=== PATIENT | female | born 1945 | race Caucasian/White ===

== ENCOUNTER 2018-03-16 15:34 | Inpatient (IN) | payer MEDICARE ==
[2018-03-16 16:51] LABS: ABS Basophils 0.1 10^3/ul (0-0.2); ABS Eosinophils 0.1 10^3/ul (0-0.6); ABS Lymphocytes 1.4 10^3/ul (1.0-4.8); ABS Monocytes 0.7 10^3/ul (0-0.8); ABS Neutrophils 5.3 10^3/ul (1.5-7.7); ABS Nucleated RBC 0 10^3/ul; Eosinophil % 1.2 % (0-6); Hematocrit 39 % (35-47); Mean Corpuscular HGB Conc 33 g/dl (31-36); Mean Corpuscular Hemoglobin 30 pg (27-31); Mean Corpuscular Volume 91 fL (80-97); Mean Platelet Volume 8.1 um3 (7.4-10.4); Nucleated Red Blood Cells % 0.2; Platelet Count 251 10^3/ul (150-450); Red Blood Count 4.29 10^6/ul (4.00-5.40); Red Cell Distribution Width 14 % (10.5-15); White Blood Count 7.6 10^3/ul (3.5-10.8)
[2018-03-16 16:54] LABS: INR 1.02 (0.77-1.02)
[2018-03-16] MEDS ORDERED: Ondansetron INJ* 2 MG/ML VIAL IV ONE (17:00)
[2018-03-16 17:02] LABS: EGFR Non-African American 78.4 (>60)
--- NOTE | 2018-03-16 17:07 | RAD ---
INDICATION: Chest pain. COMPARISON: There are no relevant prior studies available for comparison. TECHNIQUE: A portable view of the chest was obtained. FINDINGS: The heart is mildly enlarged. There is diffuse prominence of the interstitial markings with more focal infiltrates at both lung bases. There are also small bilateral pleural effusions left slightly greater than right. IMPRESSION: FINDINGS MOST CONSISTENT WITH CONGESTIVE HEART FAILURE LESS LIKELY PNEUMONIA.
[2018-03-16] MEDS ORDERED: Furosemide IV* 10 MG/ML VIAL (40 MG) IV ONE (17:19)
--- NOTE | 2018-03-16 17:36 | ED ---
Shortness of Breath - HPI Summary HPI Summary: 72 y/o female presents to the ED c/o SOB since 3 weeks ago. She also c/o CP, lightheadedness, dizziness and TAYLOR. Lying down worsens her pain. She does not take O2 at home but in the ED it is helping. She states that She denies Hx of [place] , COPD, CHF, blood clots or DM. Her left ankle is also swollen. She denies abd pain or urinary symptoms. - History of Current Complaint Chief Complaint: EDShortnessOfBreath Time Seen by Provider: 03/16/18 16:24 Hx Obtained From: Patient Onset/Duration: Gradual Onset, Lasting Weeks, Still Present Timing: Constant Aggrevating Factors: Other - lying down Associated Signs & Symptoms: Chest Pain Unrelated to Cough, Dizzy - Allergy/Home Medications Allergies/Adverse Reactions: Allergies Allergy/AdvReac Type Severity Reaction Status Date / Time No Known Allergies Allergy Verified 03/16/18 15:43 Home Medications: Home Medications Thyroid,Pork [[place] Thyroid] 120 mg PO DAILY 03/16/18 [History Confirmed ] PMH/Surg Hx/FS Hx/Imm Hx Endocrine/Hematology History: Denies: Hx Diabetes Cardiovascular History: Denies: Hx Congestive Heart Failure Respiratory History: Denies: Hx Chronic Obstructive Pulmonary Disease (COPD) - Immunization History Immunizations Up to Date: No Infectious Disease History: No Infectious Disease History: Denies: Traveled Outside the [place] in Last 30 Days - Family History Known Family History: Negative: Cardiac Disease, Diabetes - Social History Alcohol Use: Rare Substance Use Type: Reports: None Smoking Status (MU): Former Smoker Review of Systems Negative: Fever Positive: Chest Pain Positive: Shortness Of Breath Positive: Edema Neurological: Other - Positive: lightheaded, dizziness Positive: Headache All Other Systems Reviewed And Are Negative: Yes Physical Exam - Summary Physical Exam Summary: GENERAL: Patient is a well-developed and nourished female who is lying comfortable in the stretcher. Patient is not in any acute respiratory distress. HEAD AND FACE: Normocephalic EYES: PERRLA, EOMI x 2. EARS: Hearing grossly intact. MOUTH: Oropharynx within normal limits. NECK: Supple, trachea is midline, no adenopathy, no JVD, no carotid bruit. CHEST: Symmetric, no tenderness at palpation LUNGS: Clear to auscultation bilaterally. No wheezing or crackles. CVS: Regular rate and rhythm, S1 and S2 present, no murmurs or gallops appreciated. ABDOMEN: Soft, non-tender. Bowel sounds are normal. No abdominal abnormal pulsations. EXTREMITIES: Full ROM in all major joints, left lower extremity mild edema +1 not pitting, no cyanosis or clubbing. NEURO: Alert and oriented x 3. No acute neurological deficits. Speech is normal and follows commands. SKIN: Dry and warm Triage Information Reviewed: Yes Vital Signs On Initial Exam: Initial Vitals Temp Pulse Resp BP Pulse Ox 97.5 F 105 24 171/94 90 03/16/18 15:39 03/16/18 15:39 03/16/18 15:39 03/16/18 15:39 03/16/18 15:39 Vital Signs Reviewed: Yes Diagnostics - Vital Signs Vital Signs Temp Pulse Resp BP Pulse Ox 03/16/18 17:00 93 26 97 03/16/18 16:49 94 29 168/95 97 03/16/18 16:19 93 26 187/107 97 03/16/18 16:18 96 27 98 03/16/18 15:39 97.5 F 105 24 171/94 90 - Laboratory Lab Results: Lab Results 03/16/18 03/16/18 03/16/18 Range/Units 16:38 16:38 16:38 WBC 7.6 (3.5-10.8) 10^3/ul RBC 4.29 (4.00-5.40) 10^6/ul Hgb 13.0 (12.0-16.0) g/dl Hct 39 (35-47) % MCV 91 (80-97) fL MCH 30 (27-31) pg MCHC 33 (31-36) g/dl RDW 14 (10.5-15) % Plt Count 251 (150-450) 10^3/ul MPV 8.1 (7.4-10.4) um3 Neut % (Auto) 69.4 (38-83) % Lymph % (Auto) 19.0 L (25-47) % Sully % (Auto) 9.7 H (0-7) % Eos % (Auto) 1.2 (0-6) % Baso % (Auto) 0.7 (0-2) % Absolute Neuts (auto) 5.3 (1.5-7.7) 10^3/ul Absolute Lymphs (auto) 1.4 (1.0-4.8) 10^3/ul Absolute Monos (auto) 0.7 (0-0.8) 10^3/ul Absolute Eos (auto) 0.1 (0-0.6) 10^3/ul Absolute Basos (auto) 0.1 (0-0.2) 10^3/ul Absolute Nucleated RBC 0 10^3/ul Nucleated RBC % 0.2 INR (Anticoag Therapy) 1.02 (0.77-1.02) APTT 32.6 (26.0-36.3) seconds Sodium 136 (135-145) mmol/L Potassium 3.6 (3.5-5.0) mmol/L Chloride 103 (101-111) mmol/L Carbon Dioxide 25 (22-32) mmol/L Anion Gap 8 (2-11) mmol/L BUN 16 (6-24) mg/dL Creatinine 0.73 (0.51-0.95) mg/dL Est GFR ( Amer) 94.8 (>60) Est GFR (Non-Af Amer) 78.4 (>60) BUN/Creatinine Ratio 21.9 H (8-20) Glucose 93 (70-100) mg/dL Lactic Acid (0.5-2.0) mmol/L Calcium 8.9 (8.6-10.3) mg/dL Magnesium 2.0 (1.9-2.7) mg/dL Total Bilirubin 0.60 (0.2-1.0) mg/dL AST 18 (13-39) U/L ALT 21 (7-52) U/L Alkaline Phosphatase 59 (34-104) U/L Troponin I 0.13 H* (<0.04) ng/mL B-Natriuretic Peptide ( - 100) pg/mL Total Protein 6.9 (6.4-8.9) g/dL Albumin 3.9 (3.2-5.2) g/dL Globulin 3.0 (2-4) g/dL Albumin/Globulin Ratio 1.3 (1-3) 03/16/18 03/16/18 Range/Units 16:38 16:38 WBC (3.5-10.8) 10^3/ul RBC (4.00-5.40) 10^6/ul Hgb (12.0-16.0) g/dl Hct (35-47) % MCV (80-97) fL MCH (27-31) pg MCHC (31-36) g/dl RDW (10.5-15) % Plt Count (150-450) 10^3/ul MPV (7.4-10.4) um3 Neut % (Auto) (38-83) % Lymph % (Auto) (25-47) % Sully % (Auto) (0-7) % Eos % (Auto) (0-6) % Baso % (Auto) (0-2) % Absolute Neuts (auto) (1.5-7.7) 10^3/ul Absolute Lymphs (auto) (1.0-4.8) 10^3/ul Absolute Monos (auto) (0-0.8) 10^3/ul Absolute Eos (auto) (0-0.6) 10^3/ul Absolute Basos (auto) (0-0.2) 10^3/ul Absolute Nucleated RBC 10^3/ul Nucleated RBC % INR (Anticoag Therapy) (0.77-1.02) APTT (26.0-36.3) seconds Sodium (135-145) mmol/L Potassium (3.5-5.0) mmol/L Chloride (101-111) mmol/L Carbon Dioxide (22-32) mmol/L Anion Gap (2-11) mmol/L BUN (6-24) mg/dL Creatinine (0.51-0.95) mg/dL Est GFR ( Amer) (>60) Est GFR (Non-Af Amer) (>60) BUN/Creatinine Ratio (8-20) Glucose (70-100) mg/dL Lactic Acid 0.7 (0.5-2.0) mmol/L Calcium (8.6-10.3) mg/dL Magnesium (1.9-2.7) mg/dL Total Bilirubin (0.2-1.0) mg/dL AST (13-39) U/L ALT (7-52) U/L Alkaline Phosphatase (34-104) U/L Troponin I (<0.04) ng/mL B-Natriuretic Peptide 664 H ( - 100) pg/mL Total Protein (6.4-8.9) g/dL Albumin (3.2-5.2) g/dL Globulin (2-4) g/dL Albumin/Globulin Ratio (1-3) Result Diagrams: 03/17/18 15:36 03/17/18 15:36 Lab Statement: Any lab studies that have been ordered have been reviewed, and results considered in the medical decision making process. - Radiology CXR Radiology Interpretation Completed By: Radiologist Summary of Radiographic Findings: FINDINGS MOST CONSISTENT WITH CONGESTIVE HEART FAILURE LESS LIKELY PNEUMONIA. The ED physician has reviewed this report. - EKG 1626 Cardiac Rate: NL - 94 EKG Rhythm: Sinus Rhythm Summary of EKG Findings: LVH with associated ST depression in lateral leads. Course/Dx - Course Course Of Treatment: 72 y/o female presents to the ED c/o SOB since 3 weeks ago.Workup is remarkable with a CXR showing findings most consistent with CHF and PNA. The patient will be admitted to Dr. Choi. - Diagnoses Provider Diagnoses: New onset of congestive heart failure - Physician Notifications Discussed Care of Patient With: Bernadine Choi Time Discussed With Above Provider: 17:25 Instructed by Provider To: Admit As Inpatient Discharge - Sign-Out/Discharge Documenting (check all that apply): Patient Departure - Admit - Discharge Plan Condition: Stable Disposition: ADMITTED TO [facility] - Billing Disposition and Condition Condition: STABLE Disposition: Admitted to [facility] - Attestation Statements Document Initiated by Scribe: Yes Documenting Scribe: Moses Briceno Provider For Whom Scribe is Documenting (Include Credential): Berna Lam MD Scribe Attestation: Moses Tavarez scribed for Berna Lam MD on 03/17/18 at 2006. Scribe Documentation Reviewed: Yes Provider Attestation: The documentation as recorded by the krystianibMoses nicole accurately reflects the service I personally performed and the decisions made by me, Joel Lam MD
[2018-03-16] MEDS ORDERED: Morphine INJ* 4 MG/ML 1 ML SYRINGE (NEW SYRINGE VERSION) IV PRN (18:16)
[2018-03-16] MEDS ORDERED: Acetaminophen TAB* 325 MG PO PRN (18:23)
[2018-03-16] MEDS ORDERED: Aspirin TAB* 325 MG PO ONE (18:26)
--- NOTE | 2018-03-16 22:03 | HP ---
AMENDED REPORT NOW INCLUDES DESIGNATED COSIGNER CC: Dr. Monalisa Sandhu * HOSPITAL MEDICINE HISTORY AND PHYSICAL: DATE OF ADMISSION: 03/16/18 PRIMARY CARE PHYSICIAN: Dr. Monalisa Sandhu. ATTENDING PHYSICIAN: Dr. Bryon Moody * (dictation provided by Kathy Swain NP). CHIEF COMPLAINT: Shortness of breath with chest pain x3 weeks. HISTORY OF PRESENT ILLNESS: Ms. Perera is a 72-year-old female with a past medical history of hypothyroidism only, who presents to the hospital today with concern for 3 weeks of band-like chest pain with worsening shortness of breath, dyspnea on exertion, and orthopnea. Ms. Perera states that she was feeling well until 3 weeks ago when she developed some band-like chest pain. She describes it as a burning sensation across the front of her chest. This is worsened with activity and is associated with shortness of breath. She states that she at this point becomes winded even when trying to wash the dishes. She is not able to lay flat to go to bed anymore as of 3 weeks ago and states that she sleeps in a chair. She has had a couple of coughing spells, but no persistent cough and the cough that she had was nonproductive. She denies any nausea, vomiting, diarrhea, abdominal pain. She has been eating normally. In the emergency room, Ms. Perera had labs, which showed a troponin of 0.13. She had a BNP of 664. She has no leukocytosis. Her vital signs show that she is afebrile. She has a heart rate running right around 95 and a blood pressure running 160s to 180s systolically. Her chest x-ray shows concern for pulmonary edema and her EKG shows some suggestion of LVH with some downsloping ST segments in V5 and V6. PAST MEDICAL HISTORY: Hypothyroidism. MEDICATIONS: [place] Thyroid 120 mg daily in 3 divided doses. ALLERGIES: No known drug allergies. FAMILY HISTORY: The patient reports that her mother at age 88 related to blood clots and dad from an accident, but did have history of COPD related to smoking and asbestos and he at age 72. SOCIAL HISTORY: The patient quit smoking in 1999 and has not smoked since. She denies any alcohol or drug use. She lives with her , Jason, who is the healthcare proxy. REVIEW OF SYSTEMS: A 14-point review of systems was completed with Ms. Perera and all those not mentioned above were negative. PHYSICAL EXAMINATION GENERAL: Ms. Perera is sitting up in the bed. She is just returning from a walk to the bathroom and appears a bit winded, but she recovers well. She is in no acute distress. VITAL SIGNS: Temperature 97.5, pulse rate 97, respiratory rate 26, O2 saturation 97% on 2 L nasal cannula, blood pressure 168/95. LUNGS: Have crackles bilaterally in the bases, but good aeration and no accessory muscle use. HEART: S1, S2. Systolic murmur 5th intercostal space, mid clavicular line. ABDOMEN: Soft, nontender with bowel sounds positive x4. EXTREMITIES: No cyanosis. No edema. NEURO: She is alert. She is oriented x3. She moves all extremities equally. There is no facial asymmetry or focal weakness. Extraocular movements are intact. SKIN: Intact. DIAGNOSTIC STUDIES/LAB DATA: WBC 7.6, hemoglobin 13.0, hematocrit 39, platelet count 251. INR 1.02. Sodium 136, potassium 3.6, chloride 103, serum bicarbonate 25, BUN 16, creatinine 0.73, glucose 93, lactic acid 0.7. Troponin 0.13, BNP 664. Chest x-ray is as follows: "Findings most consistent with congestive heart failure, less likely pneumonia." EKG shows sinus rhythm with LVH pattern including deep S waves in V1-V3 and tall R waves in the precordial leads ASSESSMENT AND PLAN: Ms. Perera is a 72-year-old female with past medical history of hypothyroidism only, who presented to the hospital today with concern for chest pain and worsening dyspnea on exertion with orthopnea x3 weeks. In the emergency room, she has been found to have elevated troponin at 0.13 with concern for a non- ST elevation myocardial infarction as well as an elevated BNP and pulmonary edema on chest x-ray with concern for congestive heart failure. Our plans are for observation in the hospital for the followin. Non-ST elevation myocardial infarction. The patient states that she has had burning across the center of her chest but she is chest pain free now. Certainly, her symptoms could all be related to myocardial infarction, although at this time, I would not suspect that she is having acute coronary syndrome given the 3-week long period of associated symptoms. I suspect that her elevated troponin could be due to demand ischemia with CHF. Regardless, our plans will be for telemetry monitoring, repeat troponins, repeat EKGs with her troponins, and transthoracic echocardiogram. She would benefit from stress testing, but at this point based on her orthopnea, I do not think she would be a good candidate. I am hopeful that with the administration of Lasix for her concomitant congestive heart failure that we will be able perform that testing for her possibly even as early as tomorrow, but I am not ordering it now. In terms of medication, the patient will have 325 mg of aspirin in the emergency room and then continue with aspirin daily. I have ordered a lipid profile. Plan for atorvastatin and metoprolol as well, given her relatively elevated BP. 2. Concern for congestive heart failure. The patient has no history of congestive heart failure, but does have pulmonary edema and symptoms consistent with such. Plan for transthoracic echocardiogram and evaluation for coronary artery disease as per above. 3. Hypothyroidism. Plan to hold her Key[place] Thyroid and she can resume that at the time of discharge. 4. Code status is full code. TIME SPENT: Approximately 60 minutes were spent on the admission of this patient, more than half the time spent with her at the bedside reviewing the events leading up to this hospitalization, performing the physical examination, and reviewing my plan of care. KATHY SWAIN NP [id number]/[facility] #: [id number] LIZETTE
[2018-03-16] MEDS: Atorvastatin* 40 MG TAB PO SCH (22:46)
[2018-03-16] MEDS: Metoprolol Tartrate TAB* 25 MG PO SCH (22:46)
[2018-03-16] MEDS: Heparin VIAL(*) 5000 UNITS/ML VIAL (FIVE THOUSAND) SUBCUT SCH (22:47)
[2018-03-17] MEDS: Heparin VIAL(*) 5000 UNITS/ML VIAL (FIVE THOUSAND) SUBCUT SCH (06:02)
[2018-03-17] MEDS: Aspirin 81 mg CHEW TAB* 81 MG TAB.CHEW PO SCH (09:50)
[2018-03-17] MEDS: Metoprolol Tartrate TAB* 25 MG PO SCH ×2 (09:50→21:12)
--- NOTE | 2018-03-17 10:57 | ECHO ---
Patient: JOANN RAO [facility] Rec#: [id number] : 1945 Date: 03/17/2018 Age: 72y Height: 168 cm / 66.1 in Weight: 74.84 kg / 164.9 lbs Sex: F BSA: 1.85 Room#: [facility] Admit Date#: 03/16/2018 Type: Inpatient Referring: Kathy Swain NP Reading: Isai Guerra MD [employer]: Louisa Chamberlain RDCS CC: Monalisa Sandhu MD Transthoracic Echocardiogram Indication: Congestive heart failure BP: 137/72 HR: 87 Rhythm: NSR with PVCs Findings History: Hypothyroidism, former smoker. Technical Comments: The study quality is fair. Completed at 0850. Left Ventricle: The left ventricular chamber size is mildly dilated. Mild concentric left ventricular hypertrophy is observed. There is global hypokinesis of the left ventricle with minor regional variation. There is moderately decreased left ventricular systolic function. The estimated ejection fraction is 35-40%. There is no consistent Doppler evidence of clinically significant diastolic dysfunction. Left Atrium: The left atrium is severely dilated. Right Ventricle: Moderator Band present. The right ventricular cavity size is normal. The right ventricular global systolic function is low normal. Right Atrium: The right atrium is slightly dilated. Aortic Valve: The aortic valve is trileaflet. The aortic valve leaflets are mildly thickened. There is no evidence of aortic regurgitation. There is no evidence of aortic stenosis. Mitral Valve: There is mitral annular calcification. The mitral valve leaflets are mildly thickened. There is moderate mitral regurgitation. There is no evidence of mitral stenosis. Tricuspid Valve: The tricuspid valve leaflets are normal. There is trace tricuspid regurgitation. The right ventricular systolic pressure is estimated at 27 mmHg. No pulmonary hypertension is noted. There is no tricuspid stenosis. Pulmonic Valve: The pulmonic valve appears normal. There is a trace pulmonic regurgitation. There is no pulmonic stenosis. Pericardium: There is no significant pericardial effusion. A pericardial fat pad is visualized. A left pleural effusion is present. Aorta: There is borderline dilatation of the ascending aorta. The aortic arch is not well visualized. The aortic root is normal in size. Pulmonary Artery: The main pulmonary artery appears normal. Venous: The inferior vena cava is dilated. There is a greater than 50% respiratory change in the inferior vena cava dimension. Summary: There was not any prior study for comparison. Conclusions The left ventricular chamber size is mildly dilated. Mild concentric left ventricular hypertrophy is observed. There is global hypokinesis of the left ventricle with minor regional variation. There is moderately decreased left ventricular systolic function. The estimated ejection fraction is 35-40%. Hypo/akinesis of basal-mid inferoseptum, basal-mid inferior wall, basal-mid inferolateral wall There is no consistent Doppler evidence of clinically significant diastolic dysfunction. The left atrium is severely dilated. The right atrium is slightly dilated. There is moderate mitral regurgitation. There is trace tricuspid regurgitation. The right ventricular systolic pressure is estimated at 27 mmHg. No pulmonary hypertension is noted. There is a trace pulmonic regurgitation. There is borderline dilatation of the ascending aorta. There was not any prior study for comparison. Measurements Name Value Normal Range RVIDd (AP) 2D 2.1 cm (0.9 - 2.6) RVDdMajor (2D) 4.3 cm (2.2 - 4.4) RAd ISD 4CH 4.7 cm (3.4 - 4.9) RA (A4C)W 4.8 cm (2.9 - 4.6) IVSd (2D) 1.2 cm (0.6 - 1) LVPWd (2D) 1.1 cm (0.6 - 1) LVIDd (2D) 5.8 cm (3.6 - 5.4) LVIDs (2D) 5 cm - LV FS (2D) 14 % (25 - 45) Aortic Annulus 2.1 cm (1.4 - 2.6) Ao root diameter (2D) 3.1 cm (2.1 - 3.5) Ascending Ao 3.4 cm (2.1 - 3.4) LA dimension (AP) 2D 4.1 cm (2.3 - 3.8) LAd ISD 4CH 6.1 cm (2.9 - 5.3) LA ISD 4CH W 5.4 cm (2.5 - 4.5) Name Value Normal Range LA ESV BP (A/L) index 63 ml/m2 - Name Value Normal Range MV E-wave Vmax 1.4 m/sec - MV deceleration time 77 msec - MV A-wave Vmax 0.9 m/sec - MV E:A ratio 1.7 ratio - LV septal e' Vmax 0.04 m/sec - LV lateral e' Vmax 0.05 m/sec - LV E:e' septal ratio 35 ratio - LV E:e' lateral ratio 28 ratio - Name Value Normal Range AV Vmax 1.3 m/sec - AV VTI 26.1 cm - AV peak gradient 7 mmHg - AV mean gradient 4 mmHg - LVOT Vmax 0.8 m/sec - LVOT VTI 15.5 cm - LVOT peak gradient 2 mmHg - LVOT mean gradient 1 mmHg - Name Value Normal Range MR Vmax 5 m/sec - MR VTI 165 cm - MR flow (PISA) 86.8 ml/sec - MR ERO 0.17 cm2 - MR PISA radius 0.5 cm - MR alias Vmax 55.3 cm/sec - Name Value Normal Range TR Vmax 2.2 m/sec - TR peak gradient 19 mmHg - RAP 8 mmHg - RVSP 27 mmHg - IVC diameter 2.3 cm - Name Value Normal Range PV Vmax 0.8 m/sec - PV peak gradient 3 mmHg -
[2018-03-17] MEDS ORDERED: Heparin DRIP 25,000 UNITS(*) 25,000 UNITS/500 ML BAG ONE (11:59)
[2018-03-17] MEDS ORDERED: Heparin DRIP 25,000 UNITS(*) 25,000 UNITS/500 ML BAG IV SCH (12:00)
[2018-03-17] MEDS ORDERED: Lisinopril TAB* 5 MG ONE (12:02)
[2018-03-17] MEDS ORDERED: Heparin VIAL(*) 5000 UNITS/ML VIAL (FIVE THOUSAND) SUBCUT PRN ×2 (12:12→12:14)
[2018-03-17] MEDS: Lisinopril TAB* 5 MG PO SCH (12:17)
[2018-03-17] MEDS ORDERED: Furosemide IV* 10 MG/ML 2 ML VIAL (20 MG) IV ONE (13:46)
[2018-03-17 15:50] LABS: ABS Basophils 0 10^3/ul (0-0.2); ABS Eosinophils 0.1 10^3/ul (0-0.6); ABS Lymphocytes 1.7 10^3/ul (1.0-4.8); ABS Monocytes 0.6 10^3/ul (0-0.8); ABS Neutrophils 3.2 10^3/ul (1.5-7.7); ABS Nucleated RBC 0 10^3/ul; Eosinophil % 2.2 % (0-6); Hematocrit 40 % (35-47); Hemoglobin 13.3 g/dl (12.0-16.0); Lymphocyte % 30.1 % (25-47); Mean Corpuscular HGB Conc 33 g/dl (31-36); Mean Corpuscular Hemoglobin 31 pg (27-31); Mean Corpuscular Volume 92 fL (80-97); Mean Platelet Volume 8.1 um3 (7.4-10.4); Nucleated Red Blood Cells % 0.1; Platelet Count 251 10^3/ul (150-450); Red Blood Count 4.35 10^6/ul (4.00-5.40); Red Cell Distribution Width 14 % (10.5-15); White Blood Count 5.6 10^3/ul (3.5-10.8)
[2018-03-17 16:17] LABS: EGFR Non-African American 79.6 (>60)
[2018-03-17] MEDS ORDERED: Potassium Chlor TAB* 20 MEQ TAB.ER PO ONE (16:31)
--- NOTE | 2018-03-17 19:58 | PN ---
Subjective Date of Service: 03/17/18 Interval History: Patient reports that she is feeling better today. States that shortness of breath has improved. states that she is able to lay flat in the bed. Denies chest pain or shortness of breath at this time. Denies abd pain n.v.d. ECHO today showed reduced EF of 35% - cardiology consulted Family History: Unchanged from Admission Social History: Unchanged from Admission Past Medical History: Unchanged from Admission Objective Active Medications: Acetaminophen (Tylenol Tab*) 650 mg PO Q6H PRN PRN Reason: PAIN Aspirin (Aspirin 81 Mg Chew Tab*) 81 mg PO DAILY [facility] Last Admin: 03/17/18 09:50 Dose: 81 mg Atorvastatin Calcium (Lipitor*) 40 mg PO 2100 [facility] Last Admin: 03/16/18 22:46 Dose: 40 mg Heparin Sodium (Porcine) (Heparin Vial(*)) 0 units SUBCUT .PER PROTOCOL PRN PRN Reason: SEE HEPARIN DRIP Heparin Sodium/Dextrose (Heparin Drip 25,000 Units(*)) 25,000 units in 500 mls @ 0 mls/hr IV PER RATE [facility]; Protocol Last Admin: 03/17/18 12:15 Dose: 18 mls/hr Lisinopril (Prinivil Tab*) 2.5 mg PO DAILY [facility] Last Admin: 03/17/18 12:17 Dose: 2.5 mg Metoprolol Tartrate (Lopressor Tab*) 25 mg PO BID [facility] Last Admin: 03/17/18 09:50 Dose: 25 mg Morphine Sulfate (Morphine Inj (Syringe)*) 4 mg IV Q4H PRN PRN Reason: PAIN Vital Signs - 8 hr 03/17/18 15:15 Temperature 97.7 F Pulse Rate 76 Respiratory 16 Rate Blood Pressure 143/73 (mmHg) O2 Sat by Pulse 96 Oximetry Oxygen Devices in Use Now: None Appearance: appears comfortable no acute distress Eyes: No Scleral Icterus Ears/Nose/Mouth/Throat: Clear Oropharnyx, Mucous Membranes Moist Neck: NL Appearance and Movements; NL JVP, Trachea Midline Respiratory: Symmetrical Chest Expansion and Respiratory Effort, Clear to Auscultation Cardiovascular: No Edema, - - Mild JVD, Murmur , s1s2 regular Abdominal: NL Sounds; No Tenderness; No Distention Extremities: No Edema, No Clubbing, Cyanosis Skin: No Rash or Ulcers Neurological: Alert and Oriented x 3 Nutrition: Taking PO's Result Diagrams: 03/18/18 05:37 03/18/18 05:37 Additional Lab and Data: Lab Results 03/16/18 03/16/18 03/16/18 Range/Units 16:38 16:38 16:38 WBC 7.6 (3.5-10.8) 10^3/ul RBC 4.29 (4.00-5.40) 10^6/ul Hgb 13.0 (12.0-16.0) g/dl Hct 39 (35-47) % MCV 91 (80-97) fL MCH 30 (27-31) pg MCHC 33 (31-36) g/dl RDW 14 (10.5-15) % Plt Count 251 (150-450) 10^3/ul MPV 8.1 (7.4-10.4) um3 Neut % (Auto) 69.4 (38-83) % Lymph % (Auto) 19.0 L (25-47) % [place] % (Auto) 9.7 H (0-7) % Eos % (Auto) 1.2 (0-6) % Baso % (Auto) 0.7 (0-2) % Absolute Neuts (auto) 5.3 (1.5-7.7) 10^3/ul Absolute Lymphs (auto) 1.4 (1.0-4.8) 10^3/ul Absolute Monos (auto) 0.7 (0-0.8) 10^3/ul Absolute Eos (auto) 0.1 (0-0.6) 10^3/ul Absolute Basos (auto) 0.1 (0-0.2) 10^3/ul Absolute Nucleated RBC 0 10^3/ul Nucleated RBC % 0.2 INR (Anticoag Therapy) 1.02 (0.77-1.02) APTT 32.6 (26.0-36.3) seconds Sodium 136 (135-145) mmol/L Potassium 3.6 (3.5-5.0) mmol/L Chloride 103 (101-111) mmol/L Carbon Dioxide 25 (22-32) mmol/L Anion Gap 8 (2-11) mmol/L BUN 16 (6-24) mg/dL Creatinine 0.73 (0.51-0.95) mg/dL Est GFR ( Amer) 94.8 (>60) Est GFR (Non-Af Amer) 78.4 (>60) BUN/Creatinine Ratio 21.9 H (8-20) Glucose 93 (70-100) mg/dL Lactic Acid (0.5-2.0) mmol/L Calcium 8.9 (8.6-10.3) mg/dL Magnesium 2.0 (1.9-2.7) mg/dL Total Bilirubin 0.60 (0.2-1.0) mg/dL AST 18 (13-39) U/L ALT 21 (7-52) U/L Alkaline Phosphatase 59 (34-104) U/L Troponin I 0.13 H* (<0.04) ng/mL B-Natriuretic Peptide ( - 100) pg/mL Total Protein 6.9 (6.4-8.9) g/dL Albumin 3.9 (3.2-5.2) g/dL Globulin 3.0 (2-4) g/dL Albumin/Globulin Ratio 1.3 (1-3) 03/16/18 03/16/18 Range/Units 16:38 16:38 WBC (3.5-10.8) 10^3/ul RBC (4.00-5.40) 10^6/ul Hgb (12.0-16.0) g/dl Hct (35-47) % MCV (80-97) fL MCH (27-31) pg MCHC (31-36) g/dl RDW (10.5-15) % Plt Count (150-450) 10^3/ul MPV (7.4-10.4) um3 Neut % (Auto) (38-83) % Lymph % (Auto) (25-47) % [place] % (Auto) (0-7) % Eos % (Auto) (0-6) % Baso % (Auto) (0-2) % Absolute Neuts (auto) (1.5-7.7) 10^3/ul Absolute Lymphs (auto) (1.0-4.8) 10^3/ul Absolute Monos (auto) (0-0.8) 10^3/ul Absolute Eos (auto) (0-0.6) 10^3/ul Absolute Basos (auto) (0-0.2) 10^3/ul Absolute Nucleated RBC 10^3/ul Nucleated RBC % INR (Anticoag Therapy) (0.77-1.02) APTT (26.0-36.3) seconds Sodium (135-145) mmol/L Potassium (3.5-5.0) mmol/L Chloride (101-111) mmol/L Carbon Dioxide (22-32) mmol/L Anion Gap (2-11) mmol/L BUN (6-24) mg/dL Creatinine (0.51-0.95) mg/dL Est GFR ( Amer) (>60) Est GFR (Non-Af Amer) (>60) BUN/Creatinine Ratio (8-20) Glucose (70-100) mg/dL Lactic Acid 0.7 (0.5-2.0) mmol/L Calcium (8.6-10.3) mg/dL Magnesium (1.9-2.7) mg/dL Total Bilirubin (0.2-1.0) mg/dL AST (13-39) U/L ALT (7-52) U/L Alkaline Phosphatase (34-104) U/L Troponin I (<0.04) ng/mL B-Natriuretic Peptide 664 H ( - 100) pg/mL Total Protein (6.4-8.9) g/dL Albumin (3.2-5.2) g/dL Globulin (2-4) g/dL Albumin/Globulin Ratio (1-3) Assess/Plan/Problems-Billing Assessment: Ms. Perera is a 72 y.o female with a PMHx significant for Hypothyroid who presented to the Emergency room with progressively worsening shortness of breath over the past 3 weeks. found to have CHF - Patient Problems (1) Acute systolic CHF (congestive heart failure) Current Visit: Yes Status: Acute Code(s): I50.21 - ACUTE SYSTOLIC ( CONGESTIVE) HEART FAILURE SNOMED Code(s): 877357923 Comment: - shortness of breath improved with Lasix- given 20mg of lasix today - ECHO showed EF of 35-40% with systolic dysfuction The left ventricular chamber size is mildly dilated. Mild concentric left ventricular hypertrophy is observed. There is global hypokinesis of the left ventricle with minor regional variation. There is moderately decreased left ventricular systolic function. The estimated ejection fraction is 35-40%. Hypo/akinesis of basal-mid There is no consistent Doppler evidence of clinically significant diastolic dysfunction. The left atrium is severely dilated. The right atrium is slightly dilated. There is moderate mitral regurgitation. There is trace tricuspid regurgitation. The right ventricular systolic pressure is estimated at 27 mmHg. No pulmonary hypertension is noted. There is a trace pulmonic regurgitation. There is borderline dilatation of the ascending aorta. - will add Lisinopril 2.5 mg - Consulted cardiology - seen by interventional cardiology today- continue BB, lisinopril, asa and heparin drip. plan to continue lasix, heparin drip, will have cath after CHF is improved - repeat cxr in the AM (2) Hypothyroid Current Visit: Yes Status: Acute Code(s): E03.9 - HYPOTHYROIDISM, UNSPECIFIED SNOMED Code(s): 67922162 Comment: holding - armour thyroid (3) DVT prophylaxis Current Visit: Yes Status: Acute Code(s): HXW9105 - SNOMED Code(s): 900821769 Comment: heparin drip (4) Full code status Current Visit: Yes Status: Acute Code(s): Z78.9 - OTHER SPECIFIED HEALTH STATUS SNOMED Code(s): 923433397 Status and Disposition: inpatient discharge when medically stable
[2018-03-17] MEDS: Atorvastatin* 40 MG TAB PO SCH (21:12)
--- NOTE | 2018-03-17 22:29 | CONS ---
CC: Dr. Guerra; Hospital Service; Dr. Monalisa Sandhu CARDIOLOGY CONSULT: DATE OF CONSULT: 03/17/18 PRIMARY CARE PHYSICIAN: Dr. Monalisa Sandhu. HISTORY OF PRESENT ILLNESS: I was asked by hospital service to see this pleasant 72-year-old female patient with her only known past medical history of hypothyroidism and she is on thyroid medications for that. She said for about 3 weeks' duration, she had new onset of chest pain mainly exertional wi th her usual daily activity and also shortness of breath. She also had episode of chest pressure whi le she was eating her meals. She indicated that when she started activities, her symptoms improved s ignificantly. She had no jaw pain, no arm pain, no nausea, no vomiting, no fever, no chills, no acut e viral illness recently. She gives no history of congestive heart failure, no history of coronary a rtery disease, no history of myocardial infarction in the past. She had history of smoking on and of f for about 20 years and she quit in the year 1999. She has no family history of coronary artery dis ease. She is usually an active person taking care of her daily activity without any limiting symptom s other than the 3 weeks ago. She had no syncope, no palpitations, no tachycardia, no swelling of th e lower extremities. Upon presentation to the emergency room, she was found to be in mild congestive heart failure with a BNP of 664 and also her chest x-ray was reported to have some congestive heart failure. She responded very well to diuresis with Lasix. Her last episode of chest pain and symptom was yesterday actually before coming to the hospital. Since being in the hospital resting, she had no symptoms of chest pain. She had troponins that have been since yesterday at 0.12, 0.15, 0.15, and today this morning at 4:16, 0.16. She is chest pain-free at the present time. She had an echocardi ogram that showed her EF to be globally 35% to 40%, but she does have also segmental wall motion abno rmalities including her mid to basal inferior wall and also she had hypokinesis and akinesis of the i nferoseptal and basal to mid inferolateral wall. She does have moderate mitral insufficiency, trace tricuspid insufficiency, trace pulmonic insufficiency, borderline dilatation of the ascending aorta. Her EKGs showed her to have from yesterday, 03/16/18, sinus rhythm with possible Qs in V1, V2, borde rline ST elevation, peak T-wave and also possible LVH. There is T-wave inversion and ST depressions in V5, V6, and borderline ST elevation in lead III with some Q-wave in lead III. Her EKG from today done at 10:39 this morning showed her to have borderline Q in lead III. She does have borderline ST elevation in V1 and also T flattening and borderline ST depression in lead I, aVL, V4, V5 and V6. PAST MEDICAL HISTORY: Includes history of hypothyroidism. MEDICATIONS: Her medication as an outpatient include [place] Thyroid 120 mg daily in 3 divided doses. Her medications as an inpatient include: 1. Tylenol 650 mg p.o. q.6 hours p.r.n. 2. Aspirin 81 mg daily. 3. Lipitor 40 mg daily. 4. Heparin IV as per protocol. 5. Lisinopril 2.5 mg daily. 6. Metoprolol 25 mg twice a day. 7. Morphine 4 mg IV q.4 hours. ALLERGIES: No known drug allergies. FAMILY HISTORY: No family history of premature coronary artery disease. SOCIAL HISTORY: She quit smoking in the year 1999. She did smoke for about 20 years. No significan t alcohol drinking or illicit drug use. REVIEW OF SYSTEMS: Her review of all other systems essentially is negative. PHYSICAL EXAM: She is awake, alert, and oriented. She is not in acute distress. She had no symptoms of chest pain. Her vitals: Blood pressure is 146/81; her pulse 82, she is in sinus rhythm; tempera ture 98; respiratory rate 16. Head and Neck Exam: Normocephalic, atraumatic head. Ears, nose, and throat essentially benign. Neck: Supple. JVP is not elevated. No carotid bruits. No masses in th e neck are appreciated. Chest: Clear to auscultation. No rales, no wheeze. No added sounds apprec iated. Heart: Normal, S1, S2. No added sounds. No gallops, no rubs. There is a grade 2/6 systoli c murmur in the apex. Abdomen: Benign, soft. Positive bowel sounds. Extremities: No edema, no cy anosis, and no clubbing. Skin exam is normal. Psych: Normal affect and mood. SALESPERSON FURNITURE: No focal defic it is appreciated. DIAGNOSTIC STUDIES/LAB DATA: Sodium 136, potassium 3.6, chloride 103, total CO2 of 25, BUN 16, creat inine 0.73. LFTs normal. Triglycerides 100, cholesterol 191, LDL 116, HDL 55. White blood cells 7. 6, hemoglobin 13, hematocrit 39, platelets 215. Her echo, EKG, chest x-ray as described initially. IMPRESSION: The patient is a 72-year-old female with: 1. Acute coronary syndrome. Has been going on for about 3 weeks with typical exertional chest pain for angina and abnormal troponin. 2. Mild congestive heart failure, improved. 3. Cardiomyopathy with EF 35% to 40% with wall motion abnormality, concerns for ischemic cardiomyopa thy. 4. Abnormal EKG as described. 5. Borderline hypokalemia. 6. Hypothyroidism, on medical treatment. 7. Remote history of tobacco consumption. 8. Moderate mitral insufficiency. PLAN: This patient is currently monitored on the telemetry floor. I discussed this patient with the hospitalist service. I agree with aspirin, low dose beta- pema, low dose THEA inhibitor, statin, IV heparin as you are already doing. I discussed the plan with the patient as well. Based on all of the above, I strongly recommend cardiac catheterization to evaluate her coronary anatomy. Benefits and risks discussed with the patient and she is willing to proceed. Subsequently, I have discussed t his patient today with Dr. Alvares. He is interviewing the patient as right now actually to further d kelleyuss about the cardiac catheterization and future intervention if needed. I answered all her sharlene rns and questions up to her satisfaction. Thank you very much for asking us to participate in the care of this patient. Any further recommenda tions will be pending her cardiac catheterization results. TIME SPENT: More than half of at least 60 to 65 plus minutes was in the education, counseling mode, [id number] explaining all of the above and making further recommendations. [id number]/[facility] #: [id number]
--- NOTE | 2018-03-18 00:10 | CONS ---
CC: Dr. Monalisa Sandhu; Dr. Isai Guerra. INTERVENTIONAL CARDIOLOGY CONSULTATION NOTE: DATE OF CONSULT: INDICATION FOR CONSULT: Asked by Dr. Guerra to assess patient for cardiac catheterization in [facility] t of presentation with congestive heart failure, abnormal troponins and chest discomfort, and abnorma l EKG. HISTORY OF PRESENT ILLNESS: The patient is a pleasant 72-year-old female with no prior known coronar y artery disease history. Specifically, she denies prior myocardial infarction, congestive heart noah lure, or significant heart rhythm disturbance. She does however state that all of her life, she has been told she has some type of a squeak sound in her heart. I described to her the word murmur and s he said may be that is it. No one has ever really addressed what exactly it was. Patient was in her usual state of health until early February during the first week of February when she started going to bed at night and when she would lie down, she noticed a pressure sensation sitting on her chest. It was better if she sat up. She was short of breath when she was lying down and it was better if she sat up. The first week, she did not have specifically any type of exertionally related chest discomf ort when she would walk around the house. By the second week, she started to get quite winded walkin g some 10 steps with shortness of breath. Interestingly, at that point, she did not have chest discom fort, but if she ate something, she would feel a pressure sensation and shortness of breath. Clearly , whenever she was lying down, she would get the same symptoms. This progressed to the of point of where it was getting so bad that she could not get any deep breath, she could not lie down. So, she presented to the hospital emergency room. In the emergency room, her blood results came sunny k showing an initial troponin of 0.13, SGOT was 18, SGPT was 21, lactic acid was 0.7. Her B-natriure tic peptide was 664. Her BUN and creatinine were 16 and 0.7. Her hemoglobin and hematocrit was 13 a nd 39 with a platelet count of 251,000. Her INR was 1.0 and a PTT was 32. Chest x-ray showed signs of congestive heart failure, interestingly with bilateral effusions left greater than right suggestin g that this was not a sudden onset symptomatology. There was diffuse prominence of the interstitial markings with more focal infiltrates at both lung bases according to the report. The heart was quoted as being mildly enlarged. Over the course of the hospitalization thus far, her troponin really did not vary significant with va lues of 0.13, 0.12, 0.15, 0.15. There were no MB or troponins that were drawn from these samples. Initial EKG in the emergency room dated 03/16/18, timed 1626 hours, showed sinus rhythm, heart rate 9 4, DC interval 0.17, QRS interval was 0.10, QT was 0.38. There was mild down-sloping ST segment in 1 aVL. There was suggestive findings of left ventricular hypertrophy with strained pattern noted. Re peat EKG timed 2238 hours showed similar findings and the final EKG from this morning on 03/17/18 raymond ed 1039 hours showed a mildly slower heart rate with still the presence of probable left ventricular hypertrophy with repolarization abnormalities. En echocardiogram was performed this morning and revealed the left ventricle to be mildly dilated wit h mild concentric left ventricular hypertrophy with global hypokinesis with minor regional variations , the EF estimated at 35% to 40%. The left atrium was reportedly severely dilated according to the r eport by Dr. Guerra. There was moderate mitral regurgitation and trace tricuspid regurgitation. Right ventricular systolic pressure was estimated at 27 mmHg. There was borderline dilatation of the ascending aorta. An interesting fact with the patient's past medical history is that she has hypothyroidism and in the late January, she was noted to have a TSH of 25. At that time, her family doctor increased her th yroid medication from 75 mg slowly over the course of the next couple of weeks to 120 mg a day. The patient's other past medical histories include hypertension for about 4 or 5 years that was noted . She has no history of diabetes. She has a history of a mildly increased cholesterol but has never been on therapy for it. CURRENT MEDICATION: [place] thyroid 120 mg that she takes in 3 divided dosages. ALLERGIES: No known drug allergies. FAMILY HISTORY: As mentioned, there is no history of early coronary artery disease throughout the im [facility] family. SOCIAL HISTORY: She did smoke, but quit in 1999 and has not smoked since. [facility] and does not abuse alcohol or drugs. REVIEW OF SYSTEMS: As per the H and P without significant change. PHYSICAL EXAMINATION: When I see, reveals a pleasant female currently resting, in no acute distress, not on oxygen. Neck is supple. There is mild increased JVP noted. Carotids have good upstroke and volume; I do not appreciate bruits. Conjunctivae pink. Sclerae clear. Lungs reveal no accessory mus chiquis usage. There are crackles present in the left base up perhaps from the base to almost slightly [address] up on the left. The right has minimal crackles at the base. There is a question of mi nimal dullness noted at the right base. Heart reveals no visible heaves. There is definitely a palp able heave noted. Normal S1, S2. There is a very harsh, squeaky sounding systolic murmur out in the epical region. There was no significant diastolic murmur that I can appreciate. Abdomen is obese, soft, nontender. Extremities are heavy in nature, but no christain pitting edema. Femoral pulses presen t bilaterally without bruits. Right radial artery pulse is present. Neuro: Patient is alert and rigo ented with normal mentation. Musculoskeletal: The patient moves all extremities appropriate. Psych ological: Patient with normal affect. OVERALL ASSESSMENT: Zakia Perera presents now with congestive heart failure that clearly has been pre sent over the past 3 to 4 weeks by history and looking at the chest x-ray. At this point in time wit h her LV dysfunction and mitral regurgitation, I agree that a cardiac catheterization would be helpfu l to rule out the presence of coronary artery disease. At this point, being that she has not been tr eated with any therapy at all until being admitted to the hospital, I would favor that we increase he r medications and get her on good dosage of medications for LV dysfunction, continue the heparin for now since she is stable, and optimize her lung status before proceeding with the diagnostic and possi ble therapeutic cardiac catheterization. I am on all weekend long and clearly if she was to deterior ate, we would consider performing it sooner. In the meantime, I will order a full BMP on her to make sure what her potassium is doing with the diuresis. I will give her another dose of IV Lasix, but o nly 20 mg and then we will also check a TSH to make sure that it is not still significantly elevated as it was in late January. Further management will be made pending improving her current underlyin g lung status. Thank you very much for asking us to see her and we will follow her closely with you. [id number]/[facility] #: [id number]
[2018-03-18 05:55] LABS: ABS Basophils 0.1 10^3/ul (0-0.2); ABS Eosinophils 0.2 10^3/ul (0-0.6); ABS Lymphocytes 2.2 10^3/ul (1.0-4.8); ABS Monocytes 0.8 10^3/ul (0-0.8); ABS Neutrophils 2.8 10^3/ul (1.5-7.7); ABS Nucleated RBC 0 10^3/ul; Eosinophil % 2.9 % (0-6); Hematocrit 40 % (35-47); Lymphocyte % 35.8 % (25-47); Mean Corpuscular HGB Conc 33 g/dl (31-36); Mean Corpuscular Hemoglobin 30 pg (27-31); Mean Corpuscular Volume 92 fL (80-97); Mean Platelet Volume 7.9 um3 (7.4-10.4); Nucleated Red Blood Cells % 0.1; Platelet Count 250 10^3/ul (150-450); Red Blood Count 4.32 10^6/ul (4.00-5.40); Red Cell Distribution Width 14 % (10.5-15); White Blood Count 6.1 10^3/ul (3.5-10.8)
[2018-03-18 06:12] LABS: EGFR Non-African American 70.5 (>60)
[2018-03-18] MEDS: Lisinopril TAB* 5 MG PO SCH (08:31)
[2018-03-18] MEDS: Metoprolol Tartrate TAB* 25 MG PO SCH ×2 (08:31→21:15)
[2018-03-18] MEDS: Aspirin 81 mg CHEW TAB* 81 MG TAB.CHEW PO SCH (08:32)
--- NOTE | 2018-03-18 08:53 | PN ---
Subjective Date of Service: 03/18/18 Interval History: Patient reports that her shortness of breath is improving, continues to c/o mild shortness of breath. Denies chest pain. Denies headache or dizziness. Denies abd pain n/v/d. Family History: Unchanged from Admission Social History: Unchanged from Admission Past Medical History: Unchanged from Admission Objective Active Medications: Acetaminophen (Tylenol Tab*) 650 mg PO Q6H PRN PRN Reason: PAIN Aspirin (Aspirin 81 Mg Chew Tab*) 81 mg PO DAILY [facility] Last Admin: 03/18/18 08:32 Dose: 81 mg Atorvastatin Calcium (Lipitor*) 40 mg PO 2100 [facility] Last Admin: 03/17/18 21:12 Dose: 40 mg Heparin Sodium (Porcine) (Heparin Vial(*)) 0 units SUBCUT .PER PROTOCOL PRN PRN Reason: SEE HEPARIN DRIP Heparin Sodium/Dextrose (Heparin Drip 25,000 Units(*)) 25,000 units in 500 mls @ 0 mls/hr IV PER RATE [facility]; Protocol Last Admin: 03/17/18 12:15 Dose: 18 mls/hr Lisinopril (Prinivil Tab*) 2.5 mg PO DAILY [facility] Last Admin: 03/18/18 08:31 Dose: 2.5 mg Metoprolol Tartrate (Lopressor Tab*) 25 mg PO BID [facility] Last Admin: 03/18/18 08:31 Dose: 25 mg Morphine Sulfate (Morphine Inj (Syringe)*) 4 mg IV Q4H PRN PRN Reason: PAIN Vital Signs - 8 hr 03/18/18 04:19 Temperature 97.7 F Pulse Rate 77 Respiratory 18 Rate Blood Pressure 144/78 (mmHg) O2 Sat by Pulse 92 Oximetry Oxygen Devices in Use Now: None Appearance: appears comfortable lying in bed, no acute distress Eyes: No Scleral Icterus Ears/Nose/Mouth/Throat: Clear Oropharnyx, Mucous Membranes Moist Neck: NL Appearance and Movements; NL JVP, Trachea Midline Respiratory: Symmetrical Chest Expansion and Respiratory Effort, Clear to Auscultation Cardiovascular: No Edema, - - S1S2 regular, murmur , no jvd Abdominal: NL Sounds; No Tenderness; No Distention Extremities: No Edema, No Clubbing, Cyanosis Skin: No Rash or Ulcers, No Nodules or Sclerosis Neurological: Alert and Oriented x 3 Nutrition: Taking PO's Result Diagrams: 03/18/18 05:37 03/19/18 05:26 Additional Lab and Data: Lab Results 03/16/18 03/16/18 03/16/18 Range/Units 16:38 16:38 16:38 WBC 7.6 (3.5-10.8) 10^3/ul RBC 4.29 (4.00-5.40) 10^6/ul Hgb 13.0 (12.0-16.0) g/dl Hct 39 (35-47) % MCV 91 (80-97) fL MCH 30 (27-31) pg MCHC 33 (31-36) g/dl RDW 14 (10.5-15) % Plt Count 251 (150-450) 10^3/ul MPV 8.1 (7.4-10.4) um3 Neut % (Auto) 69.4 (38-83) % Lymph % (Auto) 19.0 L (25-47) % Moca % (Auto) 9.7 H (0-7) % Eos % (Auto) 1.2 (0-6) % Baso % (Auto) 0.7 (0-2) % Absolute Neuts (auto) 5.3 (1.5-7.7) 10^3/ul Absolute Lymphs (auto) 1.4 (1.0-4.8) 10^3/ul Absolute Monos (auto) 0.7 (0-0.8) 10^3/ul Absolute Eos (auto) 0.1 (0-0.6) 10^3/ul Absolute Basos (auto) 0.1 (0-0.2) 10^3/ul Absolute Nucleated RBC 0 10^3/ul Nucleated RBC % 0.2 INR (Anticoag Therapy) 1.02 (0.77-1.02) APTT 32.6 (26.0-36.3) seconds Sodium 136 (135-145) mmol/L Potassium 3.6 (3.5-5.0) mmol/L Chloride 103 (101-111) mmol/L Carbon Dioxide 25 (22-32) mmol/L Anion Gap 8 (2-11) mmol/L BUN 16 (6-24) mg/dL Creatinine 0.73 (0.51-0.95) mg/dL Est GFR ( Amer) 94.8 (>60) Est GFR (Non-Af Amer) 78.4 (>60) BUN/Creatinine Ratio 21.9 H (8-20) Glucose 93 (70-100) mg/dL Lactic Acid (0.5-2.0) mmol/L Calcium 8.9 (8.6-10.3) mg/dL Magnesium 2.0 (1.9-2.7) mg/dL Total Bilirubin 0.60 (0.2-1.0) mg/dL AST 18 (13-39) U/L ALT 21 (7-52) U/L Alkaline Phosphatase 59 (34-104) U/L Troponin I 0.13 H* (<0.04) ng/mL B-Natriuretic Peptide ( - 100) pg/mL Total Protein 6.9 (6.4-8.9) g/dL Albumin 3.9 (3.2-5.2) g/dL Globulin 3.0 (2-4) g/dL Albumin/Globulin Ratio 1.3 (1-3) 03/16/18 03/16/18 Range/Units 16:38 16:38 WBC (3.5-10.8) 10^3/ul RBC (4.00-5.40) 10^6/ul Hgb (12.0-16.0) g/dl Hct (35-47) % MCV (80-97) fL MCH (27-31) pg MCHC (31-36) g/dl RDW (10.5-15) % Plt Count (150-450) 10^3/ul MPV (7.4-10.4) um3 Neut % (Auto) (38-83) % Lymph % (Auto) (25-47) % Moca % (Auto) (0-7) % Eos % (Auto) (0-6) % Baso % (Auto) (0-2) % Absolute Neuts (auto) (1.5-7.7) 10^3/ul Absolute Lymphs (auto) (1.0-4.8) 10^3/ul Absolute Monos (auto) (0-0.8) 10^3/ul Absolute Eos (auto) (0-0.6) 10^3/ul Absolute Basos (auto) (0-0.2) 10^3/ul Absolute Nucleated RBC 10^3/ul Nucleated RBC % INR (Anticoag Therapy) (0.77-1.02) APTT (26.0-36.3) seconds Sodium (135-145) mmol/L Potassium (3.5-5.0) mmol/L Chloride (101-111) mmol/L Carbon Dioxide (22-32) mmol/L Anion Gap (2-11) mmol/L BUN (6-24) mg/dL Creatinine (0.51-0.95) mg/dL Est GFR ( Amer) (>60) Est GFR (Non-Af Amer) (>60) BUN/Creatinine Ratio (8-20) Glucose (70-100) mg/dL Lactic Acid 0.7 (0.5-2.0) mmol/L Calcium (8.6-10.3) mg/dL Magnesium (1.9-2.7) mg/dL Total Bilirubin (0.2-1.0) mg/dL AST (13-39) U/L ALT (7-52) U/L Alkaline Phosphatase (34-104) U/L Troponin I (<0.04) ng/mL B-Natriuretic Peptide 664 H ( - 100) pg/mL Total Protein (6.4-8.9) g/dL Albumin (3.2-5.2) g/dL Globulin (2-4) g/dL Albumin/Globulin Ratio (1-3) Assess/Plan/Problems-Billing Assessment: Ms. Perera is a 72 y.o female with a PMHx significant for Hypothyroid who presented to the Emergency room with progressively worsening shortness of breath over the past 3 weeks. found to have CHF - Patient Problems (1) Acute systolic CHF (congestive heart failure) Current Visit: Yes Status: Acute Code(s): I50.21 - ACUTE SYSTOLIC ( CONGESTIVE) HEART FAILURE SNOMED Code(s): 414651829 Comment: - shortness of breath improved with Lasix - ECHO showed EF of 35-40% with systolic dysfuction The left ventricular chamber size is mildly dilated. Mild concentric left ventricular hypertrophy is observed. There is global hypokinesis of the left ventricle with minor regional variation. There is moderately decreased left ventricular systolic function. The estimated ejection fraction is 35-40%. Hypo/akinesis of basal-mid There is no consistent Doppler evidence of clinically significant diastolic dysfunction. The left atrium is severely dilated. The right atrium is slightly dilated. Mod MR. Trace TR. No pulmonary hypertension is noted. There is a trace pulmonic regurgitation. - will add Lisinopril 2.5 mg - Consulted cardiology - seen by interventional cardiology - continue BB, lisinopril, asa and heparin drip. plan to continue lasix, heparin drip, will have cath after CHF is improved- most likely tuesday - repeat cxr in the AM- (2) Hypertension Current Visit: Yes Status: Acute Code(s): I10 - ESSENTIAL (PRIMARY) HYPERTENSION SNOMED Code(s): 68340398 Comment: SBP 117-152 Started on lisinopril will increase to 5 mg and re-evaluate BP (3) Hypothyroid Current Visit: Yes Status: Acute Code(s): E03.9 - HYPOTHYROIDISM, UNSPECIFIED SNOMED Code(s): 35210333 Comment: TSH 1.81 continue armour thyroid (4) DVT prophylaxis Current Visit: Yes Status: Acute Code(s): WGR9923 - SNOMED Code(s): 252771504 Comment: heparin drip - stopped will convert to lovenox 1mg/kg (75mg) BID (5) Full code status Current Visit: Yes Status: Acute Code(s): Z78.9 - OTHER SPECIFIED HEALTH STATUS SNOMED Code(s): 501758496 Status and Disposition: inpatient discharge when medically stable
--- NOTE | 2018-03-18 09:15 | RAD ---
INDICATION: Chest pain. COMPARISON: Comparison is made with a prior study from March 16, 2018. TECHNIQUE: Dual-energy PA and lateral views of the chest were obtained. FINDINGS: The heart is upper limits of normal in size. Mediastinal contours appear normal. There are small bibasilar infiltrates and small bilateral pleural effusions which appear improved from the prior study. No pneumothorax is seen. IMPRESSION: SMALL BIBASILAR INFILTRATES AND SMALL PLEURAL EFFUSIONS IMPROVED FROM THE PRIOR STUDY.
[2018-03-18] MEDS ORDERED: Lisinopril TAB* 5 MG PO ONE ×2 (09:52→15:00)
[2018-03-18] MEDS: Furosemide TAB* 20 MG PO SCH (10:19)
[2018-03-18] MEDS: Enoxaparin(*) 80 MG/0.8 ML SYR SUBCUT SCH ×2 (11:23→23:18)
[2018-03-18] MEDS: Thyroid TAB* 15 MG PO SCH (16:30)
[2018-03-18] MEDS: Atorvastatin* 40 MG TAB PO SCH (21:15)
[2018-03-18] MEDS: Thyroid TAB* 30 MG PO SCH (21:41)
[2018-03-19 05:54] LABS: EGFR Non-African American 78.4 (>60)
[2018-03-19] MEDS ORDERED: Lisinopril TAB* 5 MG PO SCH (09:00)
[2018-03-19] MEDS: Aspirin 81 mg CHEW TAB* 81 MG TAB.CHEW PO SCH (09:14)
[2018-03-19] MEDS: Thyroid TAB* 15 MG PO SCH ×2 (09:14→16:59)
[2018-03-19] MEDS: Metoprolol Tartrate TAB* 25 MG PO SCH ×2 (09:14→21:30)
[2018-03-19] MEDS: Furosemide TAB* 20 MG PO SCH (09:14)
[2018-03-19] MEDS: Lisinopril TAB* 10 MG PO SCH (09:39)
--- NOTE | 2018-03-19 10:08 | PN ---
Subjective Date of Service: 03/19/18 Interval History: Patient reports restless last night, states that breathing continues to improved , states that she is able to walk around without becoming short of breath. Denies chest pain or shortness of breath when sitting. does report some mild pressure and difficult breathing when lying flat. denies fever or chills, denies abd pain n/v/d. Family History: Unchanged from Admission Social History: Unchanged from Admission Past Medical History: Unchanged from Admission Objective Active Medications: Acetaminophen (Tylenol Tab*) 650 mg PO Q6H PRN PRN Reason: PAIN Aspirin (Aspirin 81 Mg Chew Tab*) 81 mg PO DAILY [facility] Last Admin: 03/19/18 09:14 Dose: 81 mg Atorvastatin Calcium (Lipitor*) 40 mg PO 2100 [facility] Last Admin: 03/18/18 21:15 Dose: 40 mg Enoxaparin Sodium (Lovenox(*)) 75 mg SUBCUT Q12H [facility] Stop: 03/20/18 00:00 Last Admin: 03/18/18 23:18 Dose: 75 mg Furosemide (Lasix Tab*) 20 mg PO DAILY [facility] Last Admin: 03/19/18 09:14 Dose: 20 mg Lisinopril (Prinivil Tab*) 10 mg PO DAILY [facility] Last Admin: 03/19/18 09:39 Dose: 10 mg Metoprolol Tartrate (Lopressor Tab*) 25 mg PO BID [facility] Last Admin: 03/19/18 09:14 Dose: 25 mg Morphine Sulfate (Morphine Inj (Syringe)*) 4 mg IV Q4H PRN PRN Reason: PAIN Thyroid (Thyroid Tab*) 30 mg PO BEDTIME [facility] Last Admin: 03/18/18 21:41 Dose: 30 mg Thyroid (Thyroid Tab*) 45 mg PO 0830,1630 [facility] Last Admin: 03/19/18 09:14 Dose: 45 mg Vital Signs - 8 hr 03/19/18 03/19/18 03/19/18 03:20 07:25 07:56 Temperature 97.2 F 98.1 F Pulse Rate 71 81 Respiratory 14 18 18 Rate Blood Pressure 150/78 155/85 (mmHg) O2 Sat by Pulse 94 93 Oximetry Oxygen Devices in Use Now: None Appearance: alert and oriented x3 no acute distess Eyes: No Scleral Icterus Ears/Nose/Mouth/Throat: Clear Oropharnyx, Mucous Membranes Moist Neck: NL Appearance and Movements; NL JVP, Trachea Midline Respiratory: Symmetrical Chest Expansion and Respiratory Effort, Clear to Auscultation, - - with a few crackles in the left base Cardiovascular: No Edema, - - soft murmur, no JVD, S1S2 regular Abdominal: NL Sounds; No Tenderness; No Distention Extremities: No Edema, No Clubbing, Cyanosis Skin: No Rash or Ulcers, No Nodules or Sclerosis Neurological: Alert and Oriented x 3 Nutrition: Taking PO's Result Diagrams: 03/18/18 05:37 03/19/18 05:26 Additional Lab and Data: Lab Results 03/16/18 03/16/18 03/16/18 Range/Units 16:38 16:38 16:38 WBC 7.6 (3.5-10.8) 10^3/ul RBC 4.29 (4.00-5.40) 10^6/ul Hgb 13.0 (12.0-16.0) g/dl Hct 39 (35-47) % MCV 91 (80-97) fL MCH 30 (27-31) pg MCHC 33 (31-36) g/dl RDW 14 (10.5-15) % Plt Count 251 (150-450) 10^3/ul MPV 8.1 (7.4-10.4) um3 Neut % (Auto) 69.4 (38-83) % Lymph % (Auto) 19.0 L (25-47) % [place]acy % (Auto) 9.7 H (0-7) % Eos % (Auto) 1.2 (0-6) % Baso % (Auto) 0.7 (0-2) % Absolute Neuts (auto) 5.3 (1.5-7.7) 10^3/ul Absolute Lymphs (auto) 1.4 (1.0-4.8) 10^3/ul Absolute Monos (auto) 0.7 (0-0.8) 10^3/ul Absolute Eos (auto) 0.1 (0-0.6) 10^3/ul Absolute Basos (auto) 0.1 (0-0.2) 10^3/ul Absolute Nucleated RBC 0 10^3/ul Nucleated RBC % 0.2 INR (Anticoag Therapy) 1.02 (0.77-1.02) APTT 32.6 (26.0-36.3) seconds Sodium 136 (135-145) mmol/L Potassium 3.6 (3.5-5.0) mmol/L Chloride 103 (101-111) mmol/L Carbon Dioxide 25 (22-32) mmol/L Anion Gap 8 (2-11) mmol/L BUN 16 (6-24) mg/dL Creatinine 0.73 (0.51-0.95) mg/dL Est GFR ( Amer) 94.8 (>60) Est GFR (Non-Af Amer) 78.4 (>60) BUN/Creatinine Ratio 21.9 H (8-20) Glucose 93 (70-100) mg/dL Lactic Acid (0.5-2.0) mmol/L Calcium 8.9 (8.6-10.3) mg/dL Magnesium 2.0 (1.9-2.7) mg/dL Total Bilirubin 0.60 (0.2-1.0) mg/dL AST 18 (13-39) U/L ALT 21 (7-52) U/L Alkaline Phosphatase 59 (34-104) U/L Troponin I 0.13 H* (<0.04) ng/mL B-Natriuretic Peptide ( - 100) pg/mL Total Protein 6.9 (6.4-8.9) g/dL Albumin 3.9 (3.2-5.2) g/dL Globulin 3.0 (2-4) g/dL Albumin/Globulin Ratio 1.3 (1-3) 03/16/18 03/16/18 Range/Units 16:38 16:38 WBC (3.5-10.8) 10^3/ul RBC (4.00-5.40) 10^6/ul Hgb (12.0-16.0) g/dl Hct (35-47) % MCV (80-97) fL MCH (27-31) pg MCHC (31-36) g/dl RDW (10.5-15) % Plt Count (150-450) 10^3/ul MPV (7.4-10.4) um3 Neut % (Auto) (38-83) % Lymph % (Auto) (25-47) % [place]acy % (Auto) (0-7) % Eos % (Auto) (0-6) % Baso % (Auto) (0-2) % Absolute Neuts (auto) (1.5-7.7) 10^3/ul Absolute Lymphs (auto) (1.0-4.8) 10^3/ul Absolute Monos (auto) (0-0.8) 10^3/ul Absolute Eos (auto) (0-0.6) 10^3/ul Absolute Basos (auto) (0-0.2) 10^3/ul Absolute Nucleated RBC 10^3/ul Nucleated RBC % INR (Anticoag Therapy) (0.77-1.02) APTT (26.0-36.3) seconds Sodium (135-145) mmol/L Potassium (3.5-5.0) mmol/L Chloride (101-111) mmol/L Carbon Dioxide (22-32) mmol/L Anion Gap (2-11) mmol/L BUN (6-24) mg/dL Creatinine (0.51-0.95) mg/dL Est GFR ( Amer) (>60) Est GFR (Non-Af Amer) (>60) BUN/Creatinine Ratio (8-20) Glucose (70-100) mg/dL Lactic Acid 0.7 (0.5-2.0) mmol/L Calcium (8.6-10.3) mg/dL Magnesium (1.9-2.7) mg/dL Total Bilirubin (0.2-1.0) mg/dL AST (13-39) U/L ALT (7-52) U/L Alkaline Phosphatase (34-104) U/L Troponin I (<0.04) ng/mL B-Natriuretic Peptide 664 H ( - 100) pg/mL Total Protein (6.4-8.9) g/dL Albumin (3.2-5.2) g/dL Globulin (2-4) g/dL Albumin/Globulin Ratio (1-3) Assess/Plan/Problems-Billing Assessment: Ms. Perera is a 72 y.o female with a PMHx significant for Hypothyroid who presented to the Emergency room with progressively worsening shortness of breath over the past 3 weeks. found to have CHF - Patient Problems (1) Acute systolic CHF (congestive heart failure) Current Visit: Yes Status: Acute Code(s): I50.21 - ACUTE SYSTOLIC ( CONGESTIVE) HEART FAILURE SNOMED Code(s): 698488565 Comment: - shortness of breath improved with Lasix- continues to c/o mild shortness of breath when lying flat- will continue lasix - ECHO showed EF of 35-40% with systolic dysfuction The left ventricular chamber size is mildly dilated. Mild concentric left ventricular hypertrophy is observed. There is global hypokinesis of the left ventricle with minor regional variation. There is moderately decreased left ventricular systolic function. The estimated ejection fraction is 35-40%. Hypo/akinesis of basal-mid There is no consistent Doppler evidence of clinically significant diastolic dysfunction. The left atrium is severely dilated. The right atrium is slightly dilated. Mod MR. Trace TR. No pulmonary hypertension is noted. There is a trace pulmonic regurgitation. - will increase Lisinopril 10 mg - Consulted cardiology - seen by interventional cardiology - continue BB, lisinopril, asa and lovenox. will have cath after CHF is improved- most likely tuesday - repeat cxr in the AM- showed improvement (2) Hypertension Current Visit: Yes Status: Acute Code(s): I10 - ESSENTIAL (PRIMARY) HYPERTENSION SNOMED Code(s): 62272864 Comment: SBP 150's this AM Started on lisinopril will increase to 10mg and re-evaluate BP (3) Hypothyroid Current Visit: Yes Status: Acute Code(s): E03.9 - HYPOTHYROIDISM, UNSPECIFIED SNOMED Code(s): 78083190 Comment: TSH 1.81 continue armour thyroid - patient takes this in 3 divided doses at home (4) DVT prophylaxis Current Visit: Yes Status: Acute Code(s): DLH6215 - SNOMED Code(s): 064282794 Comment: lovenox 1mg/kg (75mg) BID (5) Full code status Current Visit: Yes Status: Acute Code(s): Z78.9 - OTHER SPECIFIED HEALTH STATUS SNOMED Code(s): 296080499 Status and Disposition: inpatient discharge when medically stable
[2018-03-19] MEDS ORDERED: Potassium Chlor TAB* 20 MEQ TAB.ER PO ONE (10:53)
[2018-03-19] MEDS: Enoxaparin(*) 80 MG/0.8 ML SYR SUBCUT SCH ×2 (12:18→21:31)
[2018-03-19] MEDS: Atorvastatin* 40 MG TAB PO SCH (21:29)
[2018-03-19] MEDS: Thyroid TAB* 30 MG PO SCH (21:31)
[2018-03-20 06:28] LABS: EGFR Non-African American 66.6 (>60)
[2018-03-20] MEDS ORDERED: NS 0.9% 1000 ML* 1,000 ML IV SCH ×2 (07:00→10:45)
[2018-03-20] MEDS ORDERED: diPHENhydraMINE PO* 25 MG PO PRN (08:00)
[2018-03-20] MEDS ORDERED: Diazepam TAB(*) 5 MG PO PRN (08:00)
[2018-03-20] MEDS: Lisinopril TAB* 10 MG PO SCH (08:09)
[2018-03-20] MEDS: Aspirin 81 mg CHEW TAB* 81 MG TAB.CHEW PO SCH (08:09)
[2018-03-20] MEDS: Thyroid TAB* 15 MG PO SCH ×2 (08:09→17:57)
[2018-03-20] MEDS: Metoprolol Tartrate TAB* 25 MG PO SCH (08:09)
[2018-03-20] MEDS: Furosemide TAB* 20 MG PO SCH (09:43)
[2018-03-20] MEDS ORDERED: fentaNYL* 50 MCG/ML 2 ML VIAL (100 MCG VIAL) ONE (09:49)
[2018-03-20] MEDS ORDERED: Midazolam* 1 MG/ML 10 ML VIAL (10 MG) ONE (09:49)
[2018-03-20] MEDS ORDERED: Heparin 2 UNITS/ML IVPREMIX* 2,000 ML IV ONE (09:49)
[2018-03-20] MEDS ORDERED: Iohexol 350 (CONTRAST) 200 ML MDV IV ONE ×2 (09:49→09:55)
[2018-03-20] MEDS ORDERED: Lidocaine 1% INJ* 10 MG/ML 30 ML SDV ONE (09:49)
[2018-03-20] MEDS ORDERED: nitroGLYCERIN DRIP* 25,000 MCG/250 ML BTL ONE (09:50)
[2018-03-20] MEDS ORDERED: VERAPAMIL 2.5 MG/ML 2 ML VIAL ** 5 mg/2 ml ONE (09:50)
[2018-03-20] MEDS ORDERED: Heparin(*) 1000 UNIT/ML 10 ML VIAL CATH LAB IV ONE (09:50)
[2018-03-20 12:35] LABS: EGFR Non-African American 78.4 (>60)
[2018-03-20] MEDS ORDERED: Metoprolol Tartrate TAB* 25 MG PO ONE (14:21)
[2018-03-20] MEDS ORDERED: Enoxaparin(*) 80 MG/0.8 ML SYR SUBCUT ONE (14:22)
--- NOTE | 2018-03-20 14:41 | CATH ---
CC: Dr. Monalisa Sandhu; Dr. Guerra; Dr. Rogers at [facility] * CATH REPORT: DATE OF PROCEDURE: 03/20/18 - ROOM #446 *= PRIMARY: Dr. Monalisa Sandhu CANAL DRIVER: Dr. Guerra PROCEDURES: Right radial artery access with ultrasound guidance, bilateral selective coronary cineangiography, left heart catheterization. HISTORY: An 72-year-old woman with 1 month history of progressive heart failure with class III angina, without known infarct. She was admitted in pulmonary edema with a BNP of 664, low level flat troponin elevation without EKG evolution. She was medically treated for heart failure over the weekend, underwent catheterization this morning. PROCEDURE ACCESS: Right radial artery sheath 6F slender. MEDICATIONS: 1. Subcu lidocaine. 2. IV Versed. 3. IV fentanyl. 4. Heparin 3000 units. 5. Verapamil 3 mg. 6. Nitroglycerin 300 micrograms IA. DIAGNOSTIC CATHETERS: A 5F TIG4 which was also used for left heart pressures. HEMODYNAMICS: Initial AO 121/64, LV post coronary angiography 141/10-31, no aortic valve gradient on pullback. ANGIOGRAPHY: RCA: The RCA is dominant, has proximal luminal irregularity, in its mid portion it is occluded after a large acute marginal branch which is preceded by a 60% to 70% stenosis. There is faint collateral filling of the distal right coronary with a large distribution. Left main: The left main is long, has a distal eccentric 80% stenosis. LAD: The LAD is moderate, extends past the apex, has well developed collaterals to the RPDA. The mid LAD supplies two small diagonal branches, the more proximal one has an 80% stenosis, is too small for intervention or bypass. The LAD in this area has a 60% stenosis. Circumflex: The circumflex is not dominant, is moderate, supplies a large marginal and a smaller 2nd marginal, the circumflex just before the 2nd marginal has a 30% stenosis. There are transatrial collaterals to the distal right coronary. LV gram: Not performed. CONCLUSION: 1. Significant left main with 3 vessel disease, LV systolic dysfunction. She will be referred for bypass grafting. 2. Elevated LVEDP, otherwise normal left-sided hemodynamics. 3. Successful right radial artery access with ultrasound guidance. [id number]/[facility] #: [id number] [facility]
--- NOTE | 2018-03-20 14:48 | PN ---
Subjective Date of Service: 03/20/18 Interval History: Patient awaiting for cardiac cath. Patient denies chest pain or shortness of breath. Denies abd pain n/v/d. Family History: Unchanged from Admission Social History: Unchanged from Admission Past Medical History: Unchanged from Admission Objective Active Medications: Acetaminophen (Tylenol Tab*) 650 mg PO Q6H PRN PRN Reason: PAIN Aspirin (Aspirin 81 Mg Chew Tab*) 81 mg PO DAILY [facility] Last Admin: 03/20/18 08:09 Dose: 81 mg Atorvastatin Calcium (Lipitor*) 80 mg PO 2100 [facility] Furosemide (Lasix Tab*) 20 mg PO DAILY [facility] Last Admin: 03/20/18 09:43 Dose: Not Given Lisinopril (Prinivil Tab*) 10 mg PO DAILY [facility] Last Admin: 03/20/18 08:09 Dose: 10 mg Metoprolol Tartrate (Lopressor Tab*) 25 mg PO BID [facility] Last Admin: 03/20/18 08:09 Dose: 25 mg Morphine Sulfate (Morphine Inj (Syringe)*) 4 mg IV Q4H PRN PRN Reason: PAIN Thyroid (Thyroid Tab*) 30 mg PO BEDTIME [facility] Last Admin: 03/19/18 21:31 Dose: 30 mg Thyroid (Thyroid Tab*) 45 mg PO 0830,1630 [facility] Last Admin: 03/20/18 08:09 Dose: 45 mg Vital Signs - 8 hr 03/20/18 03/20/18 03/20/18 07:25 08:00 09:42 Temperature 98.4 F Pulse Rate 77 Respiratory 18 18 20 Rate Blood Pressure 138/65 (mmHg) O2 Sat by Pulse 99 Oximetry 03/20/18 03/20/18 03/20/18 10:04 10:51 11:00 Temperature Pulse Rate 76 79 79 Respiratory 18 19 Rate Blood Pressure 148/78 (mmHg) O2 Sat by Pulse 89 91 91 Oximetry 03/20/18 03/20/18 03/20/18 11:10 11:14 11:19 Temperature Pulse Rate 74 75 76 Respiratory 19 20 17 Rate Blood Pressure 142/75 140/77 147/88 (mmHg) O2 Sat by Pulse 91 91 90 Oximetry 03/20/18 03/20/18 03/20/18 11:25 11:30 11:35 Temperature Pulse Rate 73 79 75 Respiratory 17 16 18 Rate Blood Pressure 144/72 146/75 152/86 (mmHg) O2 Sat by Pulse 90 92 93 Oximetry 03/20/18 03/20/18 03/20/18 11:40 11:45 11:49 Temperature Pulse Rate 76 77 80 Respiratory 23 17 19 Rate Blood Pressure 163/83 156/78 156/97 (mmHg) O2 Sat by Pulse 93 91 92 Oximetry 03/20/18 03/20/18 03/20/18 11:55 12:00 12:01 Temperature Pulse Rate 81 82 81 Respiratory 22 15 Rate Blood Pressure 158/87 168/115 (mmHg) O2 Sat by Pulse 93 93 92 Oximetry 03/20/18 03/20/18 03/20/18 12:08 12:23 12:59 Temperature Pulse Rate 86 79 Respiratory 20 18 Rate Blood Pressure 170/97 159/83 153/88 (mmHg) O2 Sat by Pulse 92 94 Oximetry 03/20/18 13:28 Temperature Pulse Rate Respiratory 18 Rate Blood Pressure (mmHg) O2 Sat by Pulse Oximetry Oxygen Devices in Use Now: None Appearance: appears comfortable resting in bed Eyes: No Scleral Icterus Ears/Nose/Mouth/Throat: Clear Oropharnyx, Mucous Membranes Moist Neck: NL Appearance and Movements; NL JVP, Trachea Midline Respiratory: Symmetrical Chest Expansion and Respiratory Effort, Clear to Auscultation Cardiovascular: No Edema, - - soft murmur at the apex, no tenderness, no jvd Abdominal: NL Sounds; No Tenderness; No Distention Extremities: No Edema, No Clubbing, Cyanosis Skin: No Rash or Ulcers Neurological: Alert and Oriented x 3 Nutrition: Taking PO's Result Diagrams: 03/18/18 05:37 03/20/18 12:00 Additional Lab and Data: Lab Results 03/16/18 03/16/18 03/16/18 Range/Units 16:38 16:38 16:38 WBC 7.6 (3.5-10.8) 10^3/ul RBC 4.29 (4.00-5.40) 10^6/ul Hgb 13.0 (12.0-16.0) g/dl Hct 39 (35-47) % MCV 91 (80-97) fL MCH 30 (27-31) pg MCHC 33 (31-36) g/dl RDW 14 (10.5-15) % Plt Count 251 (150-450) 10^3/ul MPV 8.1 (7.4-10.4) um3 Neut % (Auto) 69.4 (38-83) % Lymph % (Auto) 19.0 L (25-47) % Andrew % (Auto) 9.7 H (0-7) % Eos % (Auto) 1.2 (0-6) % Baso % (Auto) 0.7 (0-2) % Absolute Neuts (auto) 5.3 (1.5-7.7) 10^3/ul Absolute Lymphs (auto) 1.4 (1.0-4.8) 10^3/ul Absolute Monos (auto) 0.7 (0-0.8) 10^3/ul Absolute Eos (auto) 0.1 (0-0.6) 10^3/ul Absolute Basos (auto) 0.1 (0-0.2) 10^3/ul Absolute Nucleated RBC 0 10^3/ul Nucleated RBC % 0.2 INR (Anticoag Therapy) 1.02 (0.77-1.02) APTT 32.6 (26.0-36.3) seconds Sodium 136 (135-145) mmol/L Potassium 3.6 (3.5-5.0) mmol/L Chloride 103 (101-111) mmol/L Carbon Dioxide 25 (22-32) mmol/L Anion Gap 8 (2-11) mmol/L BUN 16 (6-24) mg/dL Creatinine 0.73 (0.51-0.95) mg/dL Est GFR ( Amer) 94.8 (>60) Est GFR (Non-Af Amer) 78.4 (>60) BUN/Creatinine Ratio 21.9 H (8-20) Glucose 93 (70-100) mg/dL Lactic Acid (0.5-2.0) mmol/L Calcium 8.9 (8.6-10.3) mg/dL Magnesium 2.0 (1.9-2.7) mg/dL Total Bilirubin 0.60 (0.2-1.0) mg/dL AST 18 (13-39) U/L ALT 21 (7-52) U/L Alkaline Phosphatase 59 (34-104) U/L Troponin I 0.13 H* (<0.04) ng/mL B-Natriuretic Peptide ( - 100) pg/mL Total Protein 6.9 (6.4-8.9) g/dL Albumin 3.9 (3.2-5.2) g/dL Globulin 3.0 (2-4) g/dL Albumin/Globulin Ratio 1.3 (1-3) 03/16/18 03/16/18 Range/Units 16:38 16:38 WBC (3.5-10.8) 10^3/ul RBC (4.00-5.40) 10^6/ul Hgb (12.0-16.0) g/dl Hct (35-47) % MCV (80-97) fL MCH (27-31) pg MCHC (31-36) g/dl RDW (10.5-15) % Plt Count (150-450) 10^3/ul MPV (7.4-10.4) um3 Neut % (Auto) (38-83) % Lymph % (Auto) (25-47) % Andrew % (Auto) (0-7) % Eos % (Auto) (0-6) % Baso % (Auto) (0-2) % Absolute Neuts (auto) (1.5-7.7) 10^3/ul Absolute Lymphs (auto) (1.0-4.8) 10^3/ul Absolute Monos (auto) (0-0.8) 10^3/ul Absolute Eos (auto) (0-0.6) 10^3/ul Absolute Basos (auto) (0-0.2) 10^3/ul Absolute Nucleated RBC 10^3/ul Nucleated RBC % INR (Anticoag Therapy) (0.77-1.02) APTT (26.0-36.3) seconds Sodium (135-145) mmol/L Potassium (3.5-5.0) mmol/L Chloride (101-111) mmol/L Carbon Dioxide (22-32) mmol/L Anion Gap (2-11) mmol/L BUN (6-24) mg/dL Creatinine (0.51-0.95) mg/dL Est GFR ( Amer) (>60) Est GFR (Non-Af Amer) (>60) BUN/Creatinine Ratio (8-20) Glucose (70-100) mg/dL Lactic Acid 0.7 (0.5-2.0) mmol/L Calcium (8.6-10.3) mg/dL Magnesium (1.9-2.7) mg/dL Total Bilirubin (0.2-1.0) mg/dL AST (13-39) U/L ALT (7-52) U/L Alkaline Phosphatase (34-104) U/L Troponin I (<0.04) ng/mL B-Natriuretic Peptide 664 H ( - 100) pg/mL Total Protein (6.4-8.9) g/dL Albumin (3.2-5.2) g/dL Globulin (2-4) g/dL Albumin/Globulin Ratio (1-3) Assess/Plan/Problems-Billing Assessment: Ms. Perera is a 72 y.o female with a PMHx significant for Hypothyroid who presented to the Emergency room with progressively worsening shortness of breath over the past 3 weeks. found to have CHF - Patient Problems (1) Acute systolic CHF (congestive heart failure) Current Visit: Yes Status: Acute Code(s): I50.21 - ACUTE SYSTOLIC ( CONGESTIVE) HEART FAILURE SNOMED Code(s): 524062635 Comment: - shortness of breath improved with Lasix- continues to c/o mild shortness of breath when lying flat- will continue lasix - ECHO showed EF of 35-40% with systolic dysfuction The left ventricular chamber size is mildly dilated. Mild concentric left ventricular hypertrophy is observed. There is global hypokinesis of the left ventricle with minor regional variation. There is moderately decreased left ventricular systolic function. The estimated ejection fraction is 35-40%. Hypo/akinesis There is no consistent Doppler evidence of clinically significant diastolic dysfunction. The left atrium is severely dilated. The right atrium is slightly dilated. Mod MR. Trace TR. No pulmonary hypertension is noted. There is a trace pulmonic regurgitation. - will increase Lisinopril 10 mg - Consulted cardiology - seen by interventional cardiology - continue BB, lisinopril, asa and lovenox. - Cardiac cath- showed RCA/LCA disease -needing bypass surgery - will transfer to [facility] for bypass accepted by Rossi Samaniego (2) Hypertension Current Visit: Yes Status: Acute Code(s): I10 - ESSENTIAL (PRIMARY) HYPERTENSION SNOMED Code(s): 02364791 Comment: SBP 130's yesterday will continue lisinopril at 10 mg and metoprolol 25mg BID (3) Hypothyroid Current Visit: Yes Status: Acute Code(s): E03.9 - HYPOTHYROIDISM, UNSPECIFIED SNOMED Code(s): 90096136 Comment: TSH 1.81 continue armour thyroid - patient takes this in 3 divided doses at home (4) DVT prophylaxis Current Visit: Yes Status: Acute Code(s): LVE8828 - SNOMED Code(s): 669382108 Comment: lovenox 1mg/kg (75mg) BID Dr. Graves has recomended a dose now post cath - will order (5) Full code status Current Visit: Yes Status: Acute Code(s): Z78.9 - OTHER SPECIFIED HEALTH STATUS SNOMED Code(s): 637499380 Status and Disposition: inpatient- transfer to [facility]
--- NOTE | 2018-03-20 15:38 | TRS ---
CC: Dr. Graves; Dr. Sandhu * DATE OF ADMISSION: 03/16/2018. DATE OF TRANSFER: 03/20/2018. PROVIDER: Bertha Tobin NP. ATTENDING PHYSICIAN: Dr. Nicanor Sams * (dictated by Bertha Tobin NP ). PRIMARY CARE PHYSICIAN: Dr. Sandhu. PRIMARY DIAGNOSES: 1. Coronary artery disease, needing bypass surgery. 2. Acute systolic CHF. SECONDARY DIAGNOSIS: Hypothyroidism. STUDIES COMPLETED WHILE IN THE HOSPITAL: 1. The patient had a chest x-ray on 03/16/2018: Radiologist's impression: Findings consistent with congestive heart failure. 2. She had a transthoracic echocardiogram on 03/16/2018: Conclusion: The left ventricular chamber size is mildly dilated. Mild concentric left ventricular hypertrophy is observed. There is global hypokinesis of the left ventricle with minor regional variation. There is moderately decreased left ventricular systolic function. The estimated ejection fraction is 35 to 40 percent. Hypo/ akinesis of basal-mid inferoseptum, basal-mid inferior wall, basal- mid inferolateral wall. There is no consistent Doppler evidence of clinically significant diastolic dysfunction. The left atrium is severely dilated. The right atrium is slightly dilated. There is moderate mitral regurgitation. There is trace tricuspid regurgitation. The right ventricular systolic pressure is estimated at 27 mmHg. No pulmonary hypertension is noted. There is trace pulmonic regurgitation. There is borderline dilatation of the ascending aorta. 3. She had an electrocardiogram on 03/16/2018 and 03/17/2018. Last echocardiogram showed sinus rhythm at a rate of 75 with slight elevation and ST elevation in V1 and V2. 4. She had a repeat chest x-ray on 03/18/2018: Radiologist's impression: Small bibasilar infiltrates and small pleural effusions, improved from prior study. TRANSFER MEDICATIONS: New medications: 1. Aspirin 81 mg p.o. daily. 2. Atorvastatin 80 mg p.o. at bedtime. 3. Lovenox 75 mg subcu b.i.d. 4. Furosemide 20 mg p.o. daily. 5. Lisinopril 10 mg p.o. daily. 6. Metoprolol 25 mg p.o. b.i.d. 7. [place] Thyroid she takes in three to five doses to equal 120 mg with 45 mg at 8:30 and 1630, and 30 mg at bedtime. HISTORY OF PRESENT ILLNESS AND HOSPITAL COURSE: Ms. Perera is a 72-year-old female with a past medical history significant for hypothyroidism who presented to the hospital on 03/16/2018 with a three week history of band-like chest pain with worsening shortness of breath, dyspnea on exertion, and orthopnea. Ms. Perera reported that until three weeks ago she was in her normal state of health. She does report that initially the pain was a burning sensation across her chest associated with belching and increased gas pains. She reports that over the course of the three weeks, she was unable to lie flat in the bed due to the increased shortness of breath and she started sleeping in a chair. She denied any fever or chills, denied any recent illnesses. While in the emergency room, she had routine lab work drawn. Her troponin was elevated at 0.13. She had a BNP that was 664. She had no leukocytosis on admission. She was afebrile and had a rate rate around 95. Blood pressure was in 160s to 180s systolically. Chest x-ray concerning for congestive heart failure and her EKG suggested some LVH with some downsloping ST segments in V5 and V6. While in the hospital, she was monitored on Telemetry. She was seen in consultation by Cardiology and Interventional Cardiology. She has been asymptomatic. Her shortness of breath has improved after diuresis with Lasix. She did have a transthoracic echocardiogram during this hospitalization which showed an EF of 35 to 40 percent. At that time, Interventional Cardiology was consulted on the case and recommended a heart catheterization. She underwent a heart catheterization on 03/20/2018 which showed disease in the left coronary artery and it was recommended by Dr. Graves that she be transferred for bypass surgery to the significant vessel disease. At this time, the patient denies any chest pain. She reports that her shortness of breath has improved. She has been afebrile throughout her hospitalization. She has had some hypertension throughout the hospitalization. She was started on Lisinopril and Metoprolol for the hypertension which improved her blood pressure during her stay. At this time, she is stable for transfer to [facility]. Vital signs are as follows: Blood pressure 153/88, heart rate is 80, respirations are 18, O2 saturation 94 percent on room air, temperature was 98.4. LABORATORY DATA: Last CBC was from 03/18/2018: WBC 6.1, RBC 4.32, hemoglobin 13.0, hematocrit 40, platelet count 250. She had a BMP on 03/20/2018: Sodium 140, potassium 4.1, chloride 106, carbon dioxide 26, anion gap 8, BUN 17, creatinine 0.73, calcium 8.8. Her last troponin was on 03/17/2018, it was 0.15. Her peak troponin was 0.16. Her TSH was 1.81. The patient will be transferred to [facility]. The patient and the have been advised of this recommendation and have accepted transfer to [facility]. The patient was accepted by Dr. Rogers who has accepted the patient at [facility]. She was contacted by Dr. Graves to initiate the transfer. This is a summarization of her hospitalization. If further details are needed, please obtain the entire medical record. TIME SPENT: Time spent on this transfer was approximately 60 minutes, greater than half that time was spent with the patient discussing transfer plans and diagnosis. CONDITION ON TRANSFER: Stable. BERTHA LOWELL, REGISTERED NURSES [id number]/CPS #: [id number] [place]
[2018-03-20 18:15] VITALS: BP 151/78
[2018-03-20] MEDS ORDERED: Atorvastatin* 40 MG TAB PO SCH (21:00)
== END 2018-03-20 18:00 | disposition short-term general hospital (02) | DRG 286 ==
LOC: ED 15:34 → MEDTELE 18:08 → OBSVTOIN 03-17 14:46 → MEDTELE 03-18 18:46
PROVIDERS: ADMIT Internal Medicine; ATTEND Student in an Organized Health Care Education/Training Program
PROC: B211YZZ Fluoroscopy of Multiple Coronary Arteries using Other Contrast (ICD-10-PCS; 2018-03-20)
PROC: 4A023N7 Measurement of Cardiac Sampling and Pressure, Left Heart, Percutaneous Approach (ICD-10-PCS; principal; 2018-03-20 09:30)
DX: I25.10 Atherosclerotic heart disease of native coronary artery without angina pectoris (principal); I50.21 Acute systolic (congestive) heart failure; I34.0 Nonrheumatic mitral (valve) insufficiency; R74.8 Abnormal levels of other serum enzymes; R01.1 Cardiac murmur, unspecified; I42.9 Cardiomyopathy, unspecified; Z79.899 Other long term (current) drug therapy; Z82.5 Family history of asthma and other chronic lower respiratory diseases; Z87.891 Personal history of nicotine dependence
CPT/HCPCS: 36415; 71045; 71046; 80048; 80053; 80061; 83605; 83735; 83880; 84443; 84484; 85025; 85610; 85730; 93005; 93306; 93458; 96374; 96375; 99156; 99285; A9270-GY; C1887; G0378; J1644; J1650; J1940; J2250; J3010

== ENCOUNTER 2021-01-07 18:44 | Inpatient (IN) ==
[2021-01-07 20:16] LABS: ABS Lymphocytes 1.1 10^3/ul (1.0-4.8); ABS Monocytes 1.4 10^3/ul (0-0.8); ABS Neutrophils 9.8 10^3/ul (1.5-7.7); Eosinophil % 0.1 %; Hematocrit 39 % (35-47); Hemoglobin 12.9 g/dL (12.0-16.0); Lymphocyte % 9.1 %; Mean Corpuscular HGB Conc 33 g/dL (31-36); Mean Corpuscular Hemoglobin 31 pg (27-31); Mean Corpuscular Volume 94 fL (80-97); Mean Platelet Volume 7.4 fL (7.4-10.4); Platelet Count 296 10^3/uL (150-450); Red Blood Count 4.16 10^6 /uL (3.70-4.87); Red Cell Distribution Width 15 % (10-15); White Blood Count 12.4 10^3/uL (3.5-10.8)
[2021-01-07 20:37] LABS: Activated Partial Thrombo Time 30.1 seconds (26.0-38.0); INR 1.19 (0.86-1.15)
[2021-01-07 20:38] LABS: ALT 30 U/L (7-52); Albumin 4.1 g/dL (3.2-5.2); Albumin/Globulin Ratio 1.1 (1-3); Alkaline Phosphatase 50 U/L (35-149); Blood Urea Nitrogen 22 mg/dL (6-24); C Reactive Protein 25.62 mg/L (<8.01); CO2 Carbon Dioxide 25 mmol/L (22-32); Chloride 103 mmol/L (101-111); EGFR African American 77.8 (>60); EGFR Non-African American 64.3 (>60); Globulin 3.7 g/dL (2-4); Glucose 108 mg/dL (70-100); Sodium 138 mmol/L (135-145); Total Protein 7.8 g/dL (6.4-8.9)
[2021-01-07 21:00] LABS: Anion Gap 10 mmol/L (2-11); Creatine Kinase 4246 U/L (10-223)
[2021-01-07 21:02] LABS: Troponin I 10.07 ng/mL (<0.03)
[2021-01-07] MEDS ORDERED: Heparin DRIP 25,000 UNITS BAG 25,000 UNITS/500 ML BAG IV SCH (21:15)
[2021-01-07] MEDS ORDERED: Heparin - STEMI 5,000 UNITS/ML 1 ml VIAL IV ONE (21:27)
[2021-01-07] MEDS ORDERED: Heparin DRIP 25,000 UNITS BAG 25,000 UNITS/500 ML BAG ONE (21:27)
[2021-01-07] MEDS ORDERED: Heparin 5000 UNITS/ML 1 mL VIAL IV SCH (22:00)
[2021-01-08 01:49] LABS: Troponin I 10.72 ng/mL (<0.03)
[2021-01-08 02:19] LABS: Creatine Kinase 4065 U/L (10-223)
[2021-01-08 05:17] LABS: ABS Lymphocytes 1.4 10^3/ul (1.0-4.8); ABS Monocytes 1.2 10^3/ul (0-0.8); Eosinophil % 0.2 %; Hematocrit 40 % (35-47); Hemoglobin 13.4 g/dL (12.0-16.0); Lymphocyte % 13.4 %; Mean Corpuscular HGB Conc 33 g/dL (31-36); Mean Corpuscular Hemoglobin 31 pg (27-31); Mean Corpuscular Volume 94 fL (80-97); Mean Platelet Volume 7.4 fL (7.4-10.4); Platelet Count 290 10^3/uL (150-450); Red Blood Count 4.27 10^6 /uL (3.70-4.87); Red Cell Distribution Width 14 % (10-15); White Blood Count 10.7 10^3/uL (3.5-10.8)
[2021-01-08 05:25] LABS: Activated Partial Thrombo Time 79.8 seconds (26.0-38.0); INR 1.24 (0.86-1.15)
[2021-01-08 05:50] LABS: Anion Gap 8 mmol/L (2-11); Blood Urea Nitrogen 26 mg/dL (6-24); CO2 Carbon Dioxide 28 mmol/L (22-32); Calcium 9.1 mg/dL (8.6-10.3); Chloride 104 mmol/L (101-111); Cholesterol 226 mg/dL; EGFR African American 73.9 (>60); Glucose 117 mg/dL (70-100); HDL Cholesterol 67.3 mg/dL; LDL Cholesterol 146 mg/dL; Magnesium 2.1 mg/dL (1.9-2.7); Potassium 3.3 mmol/L (3.5-5.0); Sodium 140 mmol/L (135-145); Triglycerides 65 mg/dL
[2021-01-08 05:52] LABS: Troponin I 10.04 ng/mL (<0.03)
[2021-01-08 06:03] LABS: Creatine Kinase 3665 U/L (10-223)
[2021-01-08] MEDS ORDERED: Potassium Chlor 20 meq TAB.ER PO ONE (06:35)
[2021-01-08 09:42] LABS: Vitamin B12 673 pg/mL (180-914)
[2021-01-08] MEDS: KCL 10 MEQ/50 ML IVPREMIX 10 MEQ/50 ML BAG IV SCH (10:08)
[2021-01-08] MEDS: Heparin DRIP 25,000 UNITS BAG 25,000 UNITS/500 ML BAG IV SCH (10:32)
[2021-01-08 13:53] LABS: INR 1.2 (0.86-1.15)
[2021-01-08 13:54] LABS: Calcium 8.9 mg/dL (8.6-10.3); EGFR African American 78.9 (>60); EGFR Non-African American 65.2 (>60); Potassium 3.7 mmol/L (3.5-5.0)
[2021-01-09 05:37] LABS: ABS Eosinophils 0.1 10^3/ul (0-0.6); ABS Lymphocytes 1.9 10^3/ul (1.0-4.8); ABS Monocytes 1.1 10^3/ul (0-0.8); ABS Neutrophils 6.8 10^3/ul (1.5-7.7); Eosinophil % 0.6 %; Hematocrit 37 % (35-47); Hemoglobin 12.5 g/dL (12.0-16.0); Lymphocyte % 19.5 %; Mean Corpuscular HGB Conc 34 g/dL (31-36); Mean Corpuscular Hemoglobin 32 pg (27-31); Mean Corpuscular Volume 94 fL (80-97); Mean Platelet Volume 7.7 fL (7.4-10.4); Platelet Count 270 10^3/uL (150-450); Red Blood Count 3.96 10^6 /uL (3.70-4.87); Red Cell Distribution Width 15 % (10-15); White Blood Count 9.8 10^3/uL (3.5-10.8)
[2021-01-09 05:47] LABS: EGFR African American 65.4 (>60); EGFR Non-African American 54.1 (>60); Potassium 3.9 mmol/L (3.5-5.0)
[2021-01-09] MEDS: Heparin DRIP 25,000 UNITS BAG 25,000 UNITS/500 ML BAG IV SCH (07:12)
[2021-01-09] MEDS: Heparin 5000 UNITS/ML 1 mL VIAL IV SCH (15:55)
[2021-01-09] MEDS: NS 0.9% 1000 ml BAG 1,000 ML IV SCH (20:35)
[2021-01-10 05:38] LABS: ABS Eosinophils 0.1 10^3/ul (0-0.6); ABS Lymphocytes 1.6 10^3/ul (1.0-4.8); ABS Monocytes 0.9 10^3/ul (0-0.8); ABS Neutrophils 3.9 10^3/ul (1.5-7.7); Eosinophil % 1.3 %; Hematocrit 36 % (35-47); Hemoglobin 11.9 g/dL (12.0-16.0); Lymphocyte % 24.7 %; Mean Corpuscular HGB Conc 33 g/dL (31-36); Mean Corpuscular Hemoglobin 31 pg (27-31); Mean Corpuscular Volume 94 fL (80-97); Mean Platelet Volume 7.7 fL (7.4-10.4); Platelet Count 243 10^3/uL (150-450); Red Blood Count 3.79 10^6 /uL (3.70-4.87); Red Cell Distribution Width 14 % (10-15); White Blood Count 6.5 10^3/uL (3.5-10.8)
[2021-01-10 06:02] LABS: Troponin I 2.87 ng/mL (<0.03)
[2021-01-10] MEDS: NS 0.9% 1000 ml BAG 1,000 ML IV SCH (10:23)
[2021-01-10] MEDS: Heparin DRIP 25,000 UNITS BAG 25,000 UNITS/500 ML BAG IV SCH (13:59)
[2021-01-10] MEDS: Heparin 5000 UNITS/ML 1 mL VIAL IV SCH (19:43)
[2021-01-11] MEDS: NS 0.9% 1000 ml BAG 1,000 ML IV SCH ×2 (01:17→18:55)
[2021-01-11 05:34] LABS: ABS Eosinophils 0.1 10^3/ul (0-0.6); ABS Lymphocytes 1.7 10^3/ul (1.0-4.8); ABS Monocytes 0.9 10^3/ul (0-0.8); ABS Neutrophils 2.6 10^3/ul (1.5-7.7); Eosinophil % 2.6 %; Hematocrit 35 % (35-47); Hemoglobin 11.9 g/dL (12.0-16.0); Lymphocyte % 31.7 %; Mean Corpuscular HGB Conc 34 g/dL (31-36); Mean Corpuscular Hemoglobin 32 pg (27-31); Mean Corpuscular Volume 93 fL (80-97); Mean Platelet Volume 7.5 fL (7.4-10.4); Platelet Count 236 10^3/uL (150-450); Red Blood Count 3.72 10^6 /uL (3.70-4.87); Red Cell Distribution Width 14 % (10-15); White Blood Count 5.3 10^3/uL (3.5-10.8)
[2021-01-11 05:54] LABS: EGFR African American 91.2 (>60); EGFR Non-African American 75.3 (>60)
[2021-01-11] MEDS: Heparin 5000 UNITS/ML 1 mL VIAL IV SCH (09:41)
[2021-01-11 16:58] LABS: Calcium 8.1 mg/dL (8.6-10.3); EGFR African American 75.8 (>60); EGFR Non-African American 62.6 (>60); Magnesium 1.7 mg/dL (1.9-2.7); Potassium 3.6 mmol/L (3.5-5.0)
[2021-01-11 17:12] LABS: Troponin I 0.86 ng/mL (<0.03)
[2021-01-11] MEDS ORDERED: Morphine 2 MG/ML SYRINGE IV PRN (17:29)
[2021-01-11] MEDS ORDERED: Nitroglycerin 0.6 mg/hr PATCH (15 mg) TRANSDERM PRN (17:30)
[2021-01-11] MEDS: Heparin DRIP 25,000 UNITS BAG 25,000 UNITS/500 ML BAG IV SCH (18:55)
[2021-01-11 21:09] LABS: Troponin I 0.81 ng/mL (<0.03)
[2021-01-12 04:30] LABS: ABS Basophils 0.1 10^3/ul (0-0.2); ABS Eosinophils 0.2 10^3/ul (0-0.6); ABS Lymphocytes 2.2 10^3/ul (1.0-4.8); ABS Monocytes 0.9 10^3/ul (0-0.8); ABS Neutrophils 2.8 10^3/ul (1.5-7.7); Eosinophil % 3.7 %; Hematocrit 33 % (35-47); Hemoglobin 11.2 g/dL (12.0-16.0); Lymphocyte % 35.2 %; Mean Corpuscular HGB Conc 34 g/dL (31-36); Mean Corpuscular Hemoglobin 31 pg (27-31); Mean Corpuscular Volume 94 fL (80-97); Mean Platelet Volume 7.6 fL (7.4-10.4); Platelet Count 242 10^3/uL (150-450); Red Blood Count 3.55 10^6 /uL (3.70-4.87); Red Cell Distribution Width 15 % (10-15); White Blood Count 6.2 10^3/uL (3.5-10.8)
[2021-01-12 04:47] LABS: Calcium 8.4 mg/dL (8.6-10.3); EGFR African American 102.1 (>60); EGFR Non-African American 84.4 (>60); Magnesium 1.7 mg/dL (1.9-2.7); Potassium 3.9 mmol/L (3.5-5.0)
[2021-01-12] MEDS ORDERED: Midazolam 5 mg/5 ml VIAL 1 mg/ml 5 ml VIAL (5 mg) ONE (09:20)
[2021-01-12] MEDS ORDERED: VERAPAMIL 2.5 MG/ML 2 ML VIAL ** 5 mg/2 ml ONE (09:20)
[2021-01-12] MEDS ORDERED: fentaNYL 100 mcg/2 ml 50 MCG/ML VIAL ONE (09:20)
[2021-01-12] MEDS ORDERED: nitroGLYCERIN DRIP 25,000 MCG/250 ML BTL ONE (09:21)
[2021-01-12] MEDS ORDERED: Heparin 2 UNITS/ML 1000 mls 2,000 ML IV ONE (09:21)
[2021-01-12] MEDS ORDERED: Heparin 1,000 UNIT/ML 10 ml (10,000 UNITS) CATHLAB/DIALYSIS ONE (09:21)
[2021-01-12] MEDS ORDERED: Iohexol 350 (CONTRAST) 200 ML MDV IV ONE (09:21)
[2021-01-12] MEDS ORDERED: Lidocaine 1% VIAL 10 MG/ML VIAL ONE (09:21)
[2021-01-12] MEDS ORDERED: Magnesium Sulfate 2 gm BAG 2 GM/50 ML BAG IVPB ONE (09:40)
[2021-01-12] MEDS ORDERED: Magnesium Sulfate 2 gm BAG 2 GM/50 ML BAG ONE (10:01)
[2021-01-12] MEDS: Heparin 5000 UNITS/ML 1 mL VIAL IV SCH (22:05)
[2021-01-13] MEDS: Heparin DRIP 25,000 UNITS BAG 25,000 UNITS/500 ML BAG IV SCH (01:36)
[2021-01-13 04:38] LABS: Hematocrit 36 % (35-47); Hemoglobin 11.8 g/dL (12.0-16.0); Mean Corpuscular HGB Conc 33 g/dL (31-36); Mean Corpuscular Hemoglobin 31 pg (27-31); Mean Corpuscular Volume 94 fL (80-97); Mean Platelet Volume 7.5 fL (7.4-10.4); Platelet Count 245 10^3/uL (150-450); Red Blood Count 3.77 10^6 /uL (3.70-4.87); Red Cell Distribution Width 14 % (10-15); White Blood Count 7.1 10^3/uL (3.5-10.8)
[2021-01-13 05:01] LABS: Calcium 8.6 mg/dL (8.6-10.3); EGFR African American 89.8 (>60); EGFR Non-African American 74.2 (>60); Magnesium 1.9 mg/dL (1.9-2.7); Phosphorus 3.8 mg/dL (2.5-5.0); Potassium 4.1 mmol/L (3.5-5.0)
[2021-01-13] MEDS ORDERED: CMCS:Pravastatin 20 mg TAB (NF) PO SCH (09:00)
[2021-01-13] MEDS ORDERED: Heparin 5000 UNITS/ML 1 mL VIAL IV SCH (11:00)
[2021-01-13] MEDS ORDERED: Heparin DRIP 25,000 UNITS BAG 25,000 UNITS/500 ML BAG IV SCH (11:00)
[2021-01-13 11:15] LABS: ABS Basophils 0.1 10^3/ul (0-0.2); ABS Eosinophils 0.2 10^3/ul (0-0.6); ABS Lymphocytes 1.4 10^3/ul (1.0-4.8); ABS Monocytes 0.7 10^3/ul (0-0.8); ABS Neutrophils 3.5 10^3/ul (1.5-7.7); Eosinophil % 2.8 %; Hematocrit 33 % (35-47); Hemoglobin 11.3 g/dL (12.0-16.0); Lymphocyte % 23.6 %; Mean Corpuscular HGB Conc 34 g/dL (31-36); Mean Corpuscular Hemoglobin 32 pg (27-31); Mean Corpuscular Volume 93 fL (80-97); Mean Platelet Volume 7.4 fL (7.4-10.4); Platelet Count 234 10^3/uL (150-450); Red Blood Count 3.56 10^6 /uL (3.70-4.87); Red Cell Distribution Width 15 % (10-15); White Blood Count 5.7 10^3/uL (3.5-10.8)
[2021-01-13 12:07] LABS: EGFR African American 87.1 (>60)
[2021-01-13 16:38] VITALS: BP 154/83
== END 2021-01-13 16:00 | disposition short-term general hospital (02) | DRG 281 ==
LOC: ED 18:44 → MED 22:21 → SUATTDRO 22:21 → MED 01-08 01:35
PROVIDERS: ADMIT Student in an Organized Health Care Education/Training Program; ATTEND Internal Medicine

== ENCOUNTER 2021-10-02 01:48 | Inpatient (IN) ==
[2021-10-02] MEDS ORDERED: Furosemide 100 mg/10 ml IV VIAL IV ONE (01:59)
[2021-10-02 02:38] LABS: ABS Lymphocytes 1.1 10^3/ul (1.0-4.8); ABS Monocytes 0.6 10^3/ul (0-0.8); ABS Neutrophils 2.9 10^3/ul (1.5-7.7); Eosinophil % 0.2 %; Hematocrit 34 % (35-47); Hemoglobin 11.3 g/dL (12.0-16.0); Lymphocyte % 24.3 %; Mean Corpuscular HGB Conc 33 g/dL (31-36); Mean Corpuscular Hemoglobin 31 pg (27-31); Mean Corpuscular Volume 92 fL (80-97); Platelet Count 277 10^3/uL (150-450); Red Blood Count 3.66 10^6 /uL (3.70-4.87); Red Cell Distribution Width 14 % (10-15); White Blood Count 4.7 10^3/uL (3.5-10.8)
[2021-10-02 03:20] LABS: Albumin 3.1 g/dL (3.2-5.2); Albumin/Globulin Ratio 1.3 (1-3); Calcium 7.4 mg/dL (8.6-10.3); Globulin 2.3 g/dL (2-4); Potassium 3.2 mmol/L (3.5-5.0); Total Bilirubin 0.7 mg/dL (0.2-1.0); Total Protein 5.4 g/dL (6.4-8.9); eGFR CKD-EPI 92.8 (>60)
[2021-10-02 04:01] LABS: High Sensitivity Troponin 1 Hr 13 pg/mL (<15)
[2021-10-02] MEDS ORDERED: Potassium Chlor 20 meq TAB.ER PO ONE (04:06)
[2021-10-02 04:25] LABS: Magnesium 1.7 mg/dL (1.9-2.7)
[2021-10-02] MEDS ORDERED: Magnesium Sulfate IV 3 GM in NS 0.9% 100 ml BAG 100 ML IVPB ONE (04:28)
[2021-10-02] MEDS ORDERED: Magnesium Sulfate 2 GM IV (Premix) IVPB ONE (04:30)
[2021-10-02 04:41] LABS: TSH Ultra Thyroid Stim Horm 46.17 mcIU/mL (0.34-5.60)
[2021-10-02 05:20] LABS: Osmolality Serum 265 mOsm/kg (275-295)
[2021-10-02] MEDS ORDERED: Magnesium Sulfate 1 GM IV 1 GM/100 ML BAG IV ONE (05:30)
[2021-10-02 05:36] LABS: Urine Creatinine Concentration 7.76 mg/dL
[2021-10-02 06:28] LABS: Urine Osmo 232 mOsm/kg (150-1150)
[2021-10-02] MEDS: Enoxaparin 40 MG/0.4 ML SYR SUBCUT SCH (06:35)
[2021-10-02 11:44] LABS: Magnesium 2.6 mg/dL (1.9-2.7); Potassium 3.6 mmol/L (3.5-5.0)
[2021-10-02] MEDS ORDERED: Furosemide 40 mg/4 ml IV VIAL IV SLOW PU ONE (13:00)
[2021-10-03 05:45] LABS: ABS Eosinophils 0.1 10^3/ul (0-0.6); ABS Lymphocytes 1.4 10^3/ul (1.0-4.8); ABS Monocytes 0.7 10^3/ul (0-0.8); ABS Neutrophils 4.3 10^3/ul (1.5-7.7); Eosinophil % 0.9 %; Hematocrit 40 % (35-47); Hemoglobin 13.4 g/dL (12.0-16.0); Lymphocyte % 20.7 %; Mean Corpuscular HGB Conc 33 g/dL (31-36); Mean Corpuscular Hemoglobin 30 pg (27-31); Mean Corpuscular Volume 91 fL (80-97); Mean Platelet Volume 6.7 fL (7.4-10.4); Platelet Count 282 10^3/uL (150-450); Red Blood Count 4.41 10^6 /uL (3.70-4.87); Red Cell Distribution Width 14 % (10-15); White Blood Count 6.5 10^3/uL (3.5-10.8)
[2021-10-03 06:00] LABS: Calcium 8.8 mg/dL (8.6-10.3); Magnesium 2.2 mg/dL (1.9-2.7); Potassium 4.1 mmol/L (3.5-5.0); eGFR CKD-EPI 71.4 (>60)
[2021-10-03] MEDS ORDERED: Aspirin EC 81 mg TAB.EC (enteric coated) PO SCH (09:00)
[2021-10-03] MEDS: Enoxaparin 40 MG/0.4 ML SYR SUBCUT SCH (09:24)
[2021-10-03 11:51] VITALS: BP 105/58
== END 2021-10-03 14:00 | disposition home or self-care (01) | DRG 291 ==
LOC: ED 01:48 → SUATTDRO 04:39 → EDHOLD 04:39 → MEDTELE 08:39
PROVIDERS: ADMIT Student in an Organized Health Care Education/Training Program; ATTEND Internal Medicine

== ENCOUNTER 2022-04-04 16:30 | Observation (INO) ==
[2022-04-04 19:47] LABS: ABS Lymphocytes 1.2 10^3/ul (1.0-4.8); ABS Monocytes 0.7 10^3/ul (0-0.8); ABS Neutrophils 4.9 10^3/ul (1.5-7.7); Eosinophil % 0.3 %; Hematocrit 35 % (35-47); Hemoglobin 11.8 g/dL (12.0-16.0); Lymphocyte % 17.4 %; Mean Corpuscular HGB Conc 34 g/dL (31-36); Mean Corpuscular Hemoglobin 32 pg (27-31); Mean Corpuscular Volume 94 fL (80-97); Mean Platelet Volume 6.9 fL (7.4-10.4); Platelet Count 275 10^3/uL (150-450); Red Blood Count 3.71 10^6 /uL (3.70-4.87); Red Cell Distribution Width 13 % (10-15); White Blood Count 6.9 10^3/uL (3.5-10.8)
[2022-04-04 20:22] LABS: Albumin/Globulin Ratio 1.7 (1-3); Calcium 8.7 mg/dL (8.6-10.3); Globulin 2.4 g/dL (2-4); Magnesium 1.9 mg/dL (1.9-2.7); Potassium 4.1 mmol/L (3.5-5.0); Total Bilirubin 0.8 mg/dL (0.2-1.0); Total Protein 6.4 g/dL (6.4-8.9)
[2022-04-04 21:38] LABS: High Sensitivity Troponin 1 Hr 110 pg/mL (<15)
[2022-04-05] MEDS ORDERED: Furosemide 40 mg/4 ml IV VIAL IV SLOW PU ONE ×3 (01:47→13:00)
[2022-04-05] MEDS ORDERED: Albuterol HFA INHALER 8 gm MDI INH PRN (03:09)
[2022-04-05 04:14] LABS: Urine Appearance Clear; Urine Bilirubin Negative (Negative); Urine Blood 1+ (Negative); Urine Color Straw; Urine Glucose Negative (Negative); Urine Ketones Negative (Negative); Urine Nitrite Positive (Negative); Urine Protein Negative (Negative); Urine Specific Gravity 1.004 (1.002-1.030); Urine Urobilinogen Negative (Negative)
[2022-04-05] MEDS ORDERED: Magnesium Sulfate IV 1GM/100ML 1 GM/100 ML BAG IV ONE (04:14)
[2022-04-05 04:21] LABS: Urine Bacteria 3+ (Absent); Urine Red Blood Cell Trace(0-2/hpf) (Absent); Urine Squamous Epithelial Cell Present (Absent); Urine White Blood Cell Trace(0-5/hpf) (Absent)
[2022-04-05 06:25] LABS: ABS Eosinophils 0.1 10^3/ul (0-0.6); ABS Lymphocytes 1.7 10^3/ul (1.0-4.8); ABS Monocytes 0.8 10^3/ul (0-0.8); ABS Neutrophils 3.5 10^3/ul (1.5-7.7); Eosinophil % 1.8 %; Hematocrit 35 % (35-47); Hemoglobin 11.9 g/dL (12.0-16.0); Mean Corpuscular HGB Conc 34 g/dL (31-36); Mean Corpuscular Hemoglobin 32 pg (27-31); Mean Corpuscular Volume 93 fL (80-97); Platelet Count 271 10^3/uL (150-450); Red Blood Count 3.78 10^6 /uL (3.70-4.87); Red Cell Distribution Width 14 % (10-15); White Blood Count 6.1 10^3/uL (3.5-10.8)
[2022-04-05 07:31] LABS: Blood Urea Nitrogen 17 mg/dL (6-24); CO2 Carbon Dioxide 24 mmol/L (22-32); Calcium 8.7 mg/dL (8.6-10.3); Chloride 93 mmol/L (101-111); Glucose 90 mg/dL (70-100); Magnesium 1.8 mg/dL (1.9-2.7); Sodium 128 mmol/L (135-145); Total Iron Binding Capacity 445 mcg/dL (250-450); Transferrin 318 mg/dL (203-362); eGFR CKD-EPI 81.2 (>60)
[2022-04-05 07:35] LABS: Anion Gap 11 mmol/L (2-11)
[2022-04-05 07:43] LABS: TSH Ultra Thyroid Stim Horm 24.58 mcIU/mL (0.34-5.60)
[2022-04-05 07:48] LABS: Ferritin 30.1 ng/mL (11-307)
[2022-04-05] MEDS: Enoxaparin 40 MG/0.4 ML SYR SUBCUT SCH (07:52)
[2022-04-05] MEDS: Cholecalciferol (VIT D3) 1,000 unit TAB PO SCH (07:59)
[2022-04-05 08:34] LABS: Potassium Redraw 3.7 mmol/L (3.5-5.0)
[2022-04-06 04:09] LABS: ABS Eosinophils 0.1 10^3/ul (0-0.6); ABS Lymphocytes 1.6 10^3/ul (1.0-4.8); ABS Monocytes 0.8 10^3/ul (0-0.8); ABS Neutrophils 2.9 10^3/ul (1.5-7.7); Eosinophil % 2.4 %; Hematocrit 36 % (35-47); Hemoglobin 11.7 g/dL (12.0-16.0); Lymphocyte % 28.6 %; Mean Corpuscular HGB Conc 33 g/dL (31-36); Mean Corpuscular Hemoglobin 31 pg (27-31); Mean Corpuscular Volume 94 fL (80-97); Mean Platelet Volume 6.9 fL (7.4-10.4); Platelet Count 273 10^3/uL (150-450); Red Cell Distribution Width 14 % (10-15); White Blood Count 5.4 10^3/uL (3.5-10.8)
[2022-04-06 04:58] LABS: Calcium 8.6 mg/dL (8.6-10.3); Potassium 4.1 mmol/L (3.5-5.0); eGFR CKD-EPI 65.4 (>60)
[2022-04-06] MEDS: Enoxaparin 40 MG/0.4 ML SYR SUBCUT SCH (06:47)
[2022-04-06] MEDS: Cholecalciferol (VIT D3) 1,000 unit TAB PO SCH (09:02)
[2022-04-06] MEDS: Furosemide 20 mg/2 ml IV VIAL IV SLOW PU SCH (09:13)
[2022-04-07 06:51] LABS: ABS Basophils 0.1 10^3/ul (0-0.2); ABS Eosinophils 0.2 10^3/ul (0-0.6); ABS Lymphocytes 1.8 10^3/ul (1.0-4.8); ABS Monocytes 0.9 10^3/ul (0-0.8); Eosinophil % 2.7 %; Hematocrit 37 % (35-47); Hemoglobin 12.1 g/dL (12.0-16.0); Lymphocyte % 30.5 %; Mean Corpuscular HGB Conc 33 g/dL (31-36); Mean Corpuscular Hemoglobin 31 pg (27-31); Mean Corpuscular Volume 94 fL (80-97); Mean Platelet Volume 7.3 fL (7.4-10.4); Platelet Count 274 10^3/uL (150-450); Red Blood Count 3.89 10^6 /uL (3.70-4.87); Red Cell Distribution Width 14 % (10-15); White Blood Count 5.9 10^3/uL (3.5-10.8)
[2022-04-07 07:14] LABS: Calcium 8.8 mg/dL (8.6-10.3); Potassium 4.4 mmol/L (3.5-5.0)
[2022-04-07] MEDS: Enoxaparin 40 MG/0.4 ML SYR SUBCUT SCH (07:50)
[2022-04-07] MEDS: Cholecalciferol (VIT D3) 1,000 unit TAB PO SCH (08:51)
[2022-04-07] MEDS: Furosemide 20 mg/2 ml IV VIAL IV SLOW PU SCH (08:51)
[2022-04-07 11:12] LABS: HDL Cholesterol 47.9 mg/dL
[2022-04-08] MEDS: Enoxaparin 40 MG/0.4 ML SYR SUBCUT SCH (05:12)
[2022-04-08 06:13] LABS: ABS Basophils 0.1 10^3/ul (0-0.2); ABS Eosinophils 0.1 10^3/ul (0-0.6); ABS Lymphocytes 1.7 10^3/ul (1.0-4.8); ABS Monocytes 0.8 10^3/ul (0-0.8); ABS Neutrophils 3.3 10^3/ul (1.5-7.7); Eosinophil % 2.5 %; Hematocrit 35 % (35-47); Hemoglobin 11.7 g/dL (12.0-16.0); Lymphocyte % 27.9 %; Mean Corpuscular HGB Conc 33 g/dL (31-36); Mean Corpuscular Hemoglobin 31 pg (27-31); Mean Corpuscular Volume 95 fL (80-97); Nucleated Red Blood Cells % 0.1; Platelet Count 274 10^3/uL (150-450); Red Blood Count 3.72 10^6 /uL (3.70-4.87); Red Cell Distribution Width 14 % (10-15); White Blood Count 5.9 10^3/uL (3.5-10.8)
[2022-04-08 06:42] LABS: Calcium 8.9 mg/dL (8.6-10.3); Potassium 4.3 mmol/L (3.5-5.0); eGFR CKD-EPI 67.1 (>60)
[2022-04-08] MEDS: Cholecalciferol (VIT D3) 1,000 unit TAB PO SCH (09:02)
[2022-04-08] MEDS: Furosemide 20 mg/2 ml IV VIAL IV SLOW PU SCH (09:02)
[2022-04-08 10:40] LABS: Ferritin 24.1 ng/mL (11-307)
[2022-04-08 15:29] VITALS: BP 149/80
== END 2022-04-08 15:45 | disposition home or self-care (01) ==
LOC: EDHOLD 16:30 → ED 16:30 → SUATTDRO 04-05 02:55 → EDHOLD 04-05 04:08 → ICU 04-05 22:50 → MEDTELE 04-06 21:24
PROVIDERS: ADMIT Internal Medicine; ATTEND Hospitalist

== ENCOUNTER 2023-06-19 00:40 | Inpatient (IN) ==
[2023-06-19 01:13] LABS: INR 1.12 (0.83-1.13)
[2023-06-19 01:21] LABS: ABS Basophils 0.1 10^3/uL (0.0-0.1); ABS Eosinophils 0.1 10^3/uL (0.0-0.5); ABS Lymphocytes 1.4 10^3/uL (1.0-4.8); ABS Monocytes 0.7 10^3/uL (0.0-0.9); ABS Nucleated RBC 0.01 10^3/ul; Eosinophil % 0.6 %; Hematocrit 17.6 % (35-45); Hemoglobin 5.8 g/dL (11.5-14.3); Lymphocyte % 15.2 %; Mean Corpuscular Hemoglobin 29.7 pg (27-33); Mean Corpuscular Hgb Conc 32.9 g/dL (31-36); Mean Corpuscular Volume 90.4 fL (80-97); Nucleated Red Blood Cells % 0.1 %/100WBC (0.0-0.8); Platelet Count 291 10^3/uL (150-450); Red Blood Count 1.95 10^6/uL (3.63-4.92); Red Cell Distribution Width 20.1 % (12-17); White Blood Count 9.2 10^3/uL (3.8-11.8)
[2023-06-19 01:24] LABS: Albumin 3.4 g/dL (3.2-5.2); Albumin/Globulin Ratio 1.4 (1-3); Calcium 8.7 mg/dL (8.6-10.3); Creatinine, Serum 0.97 mg/dL (0.51-0.95); Globulin 2.4 g/dL (2-4); Potassium 4.8 mmol/L (3.5-5.0); Total Bilirubin 0.3 mg/dL (0.2-1.0); Total Protein 5.8 g/dL (6.4-8.9); eGFR CKD-EPI 60.2 (>60)
[2023-06-19 02:29] LABS: High Sensitivity Troponin 1 Hr 36 pg/mL (<15)
[2023-06-19] MEDS ORDERED: Albuterol HFA INHALER 8 gm MDI INH PRN (03:26)
[2023-06-19 05:15] LABS: ABS Basophils 0.1 10^3/uL (0.0-0.1); ABS Lymphocytes 1.3 10^3/uL (1.0-4.8); ABS Monocytes 0.6 10^3/uL (0.0-0.9); ABS Neutrophils 10.3 10^3/uL (1.5-7.6); ABS Nucleated RBC 0.01 10^3/ul; Eosinophil % 0.1 %; Hematocrit 19.2 % (35-45); Hemoglobin 6.3 g/dL (11.5-14.3); Lymphocyte % 10.3 %; Mean Corpuscular Hemoglobin 29.3 pg (27-33); Mean Corpuscular Volume 88.9 fL (80-97); Mean Platelet Volume 7.1 fL (7.5-11.2); Platelet Count 247 10^3/uL (150-450); Red Blood Count 2.16 10^6/uL (3.63-4.92); White Blood Count 12.2 10^3/uL (3.8-11.8)
[2023-06-19] MEDS: Pantoprazole VIAL 40 MG VIAL IV SCH (08:15)
[2023-06-19] MEDS: Lidocaine PATCH 4% TOPICAL SCH (09:27)
[2023-06-19 10:34] LABS: Hematocrit 21.5 % (35-45); Hemoglobin 7.2 g/dL (11.5-14.3)
[2023-06-19] MEDS ORDERED: Furosemide 20 mg/2 ml IV VIAL IV ONE ×2 (11:20→18:20)
[2023-06-19 13:27] LABS: High Sensitivity Troponin 1 Hr 4248 pg/mL (<15)
[2023-06-19 18:13] LABS: Hematocrit 24.8 % (35-45); Hemoglobin 8.4 g/dL (11.5-14.3)
[2023-06-19 19:51] LABS: High Sensitivity Troponin 3 Hr 11740 pg/mL (<15)
[2023-06-20 06:36] LABS: ABS Basophils 0.1 10^3/uL (0.0-0.1); ABS Lymphocytes 1.5 10^3/uL (1.0-4.8); ABS Monocytes 0.8 10^3/uL (0.0-0.9); ABS Neutrophils 8.2 10^3/uL (1.5-7.6); ABS Nucleated RBC 0.03 10^3/ul; Eosinophil % 0.3 %; Hematocrit 28.3 % (35-45); Hemoglobin 9.8 g/dL (11.5-14.3); Lymphocyte % 14.2 %; Mean Corpuscular Hemoglobin 30.6 pg (27-33); Mean Corpuscular Hgb Conc 34.6 g/dL (31-36); Mean Corpuscular Volume 88.4 fL (80-97); Mean Platelet Volume 7.2 fL (7.5-11.2); Nucleated Red Blood Cells % 0.3 %/100WBC (0.0-0.8); Platelet Count 277 10^3/uL (150-450); Red Cell Distribution Width 17.5 % (12-17); White Blood Count 10.7 10^3/uL (3.8-11.8)
[2023-06-20 07:54] LABS: Calcium 8.5 mg/dL (8.6-10.3); Creatinine, Serum 1.16 mg/dL (0.51-0.95); Magnesium 2.3 mg/dL (1.9-2.7); eGFR CKD-EPI 48.6 (>60)
[2023-06-20] MEDS: Pantoprazole VIAL 40 MG VIAL IV SCH (08:45)
[2023-06-20] MEDS: Lidocaine PATCH 4% TOPICAL SCH (08:45)
[2023-06-20 11:56] LABS: High Sensitivity Troponin 1 Hr 10912 pg/mL (<15)
[2023-06-20] MEDS ORDERED: fentaNYL 100 mcg/2 ml 50 MCG/ML VIAL ONE (14:44)
[2023-06-20] MEDS ORDERED: Midazolam 10 mg/10 ml VIAL 1 mg/ml 10 ml VIAL (10 mg) ONE (14:44)
[2023-06-20 18:16] LABS: Hematocrit 29.4 % (35-45); Hemoglobin 9.9 g/dL (11.5-14.3)
[2023-06-21 06:27] LABS: ABS Basophils 0.1 10^3/uL (0.0-0.1); ABS Lymphocytes 1.6 10^3/uL (1.0-4.8); ABS Monocytes 0.8 10^3/uL (0.0-0.9); ABS Neutrophils 8.1 10^3/uL (1.5-7.6); ABS Nucleated RBC 0.02 10^3/ul; Eosinophil % 0.5 %; Hemoglobin 9.5 g/dL (11.5-14.3); Lymphocyte % 15.2 %; Mean Corpuscular Hemoglobin 30.4 pg (27-33); Mean Corpuscular Hgb Conc 33.9 g/dL (31-36); Mean Corpuscular Volume 89.4 fL (80-97); Mean Platelet Volume 7.1 fL (7.5-11.2); Nucleated Red Blood Cells % 0.2 %/100WBC (0.0-0.8); Platelet Count 280 10^3/uL (150-450); Red Blood Count 3.13 10^6/uL (3.63-4.92); Red Cell Distribution Width 18.3 % (12-17); White Blood Count 10.6 10^3/uL (3.8-11.8)
[2023-06-21 06:42] LABS: Anion Gap 11 mmol/L (2-16); Blood Urea Nitrogen 53 mg/dL (6-24); CO2 Carbon Dioxide 23 mmol/L (22-32); Calcium 8.6 mg/dL (8.6-10.3); Chloride 107 mmol/L (101-111); Glucose 100 mg/dL (70-100); Magnesium 2.1 mg/dL (1.9-2.7); Sodium 141 mmol/L (135-145)
[2023-06-21 07:12] LABS: % Iron Saturation 4 % (15-55); .Transferrin 347 mg/dL (203-362); Iron < 20 ug/dL (50-212); Total Iron Binding Capacity 486 mcg/dL (250-450); Transferrin 347 mg/dL (203-362); Unsaturated Iron Binding 466 ug/dL
[2023-06-21 07:32] LABS: Ferritin 16.7 ng/mL (11-307)
[2023-06-21] MEDS ORDERED: Ferric Gluconate IV 125 MG in NS 0.9% 100 ml BAG 100 ML IVPB SCH (08:00)
[2023-06-21] MEDS: Ferric Gluconate IV 125 MG in NS 0.9% 100 ml BAG 100 ML IVPB SCH (09:44)
[2023-06-21] MEDS: Lidocaine PATCH 4% TOPICAL SCH (09:45)
[2023-06-21] MEDS: Pantoprazole 80 mg in NS BAG 80 MG/250 ML BAG IV SCH ×2 (12:32→21:51)
[2023-06-21] MEDS: Pantoprazole VIAL 40 MG VIAL IV SCH (12:46)
[2023-06-21 17:27] LABS: Hematocrit 27.2 % (35-45); Hemoglobin 9.2 g/dL (11.5-14.3)
[2023-06-22 06:42] LABS: Hematocrit 26.6 % (35-45); Hemoglobin 8.9 g/dL (11.5-14.3); Mean Corpuscular Hemoglobin 30.3 pg (27-33); Mean Corpuscular Hgb Conc 33.3 g/dL (31-36); Mean Corpuscular Volume 91.1 fL (80-97); Mean Platelet Volume 7.2 fL (7.5-11.2); Platelet Count 291 10^3/uL (150-450); Red Blood Count 2.92 10^6/uL (3.63-4.92); Red Cell Distribution Width 18.9 % (12-17); White Blood Count 7.8 10^3/uL (3.8-11.8)
[2023-06-22 06:47] LABS: Calcium 8.6 mg/dL (8.6-10.3); Creatinine, Serum 0.88 mg/dL (0.51-0.95); Magnesium 1.9 mg/dL (1.9-2.7); Potassium 3.7 mmol/L (3.5-5.0); eGFR CKD-EPI 67.6 (>60)
[2023-06-22] MEDS: Pantoprazole 80 mg in NS BAG 80 MG/250 ML BAG IV SCH ×2 (08:29→18:28)
[2023-06-22] MEDS: Ferric Gluconate IV 125 MG in NS 0.9% 100 ml BAG 100 ML IVPB SCH (08:30)
[2023-06-22] MEDS: Lidocaine PATCH 4% TOPICAL SCH (08:30)
[2023-06-22 08:41] LABS: ABS Basophils 0.1 10^3/uL (0.0-0.1); ABS Eosinophils 0.1 10^3/uL (0.0-0.5); ABS Lymphocytes 1.4 10^3/uL (1.0-4.8); ABS Monocytes 0.8 10^3/uL (0.0-0.9); ABS Neutrophils 5.5 10^3/uL (1.5-7.6); ABS Nucleated RBC 0.02 10^3/ul; Anisocytosis 2+; Eosinophil % 0.7 %; Lymphocyte % 17.9 %; Nucleated Red Blood Cells % 0.3 %/100WBC (0.0-0.8); Polychromasia 2+
[2023-06-23] MEDS: Pantoprazole 80 mg in NS BAG 80 MG/250 ML BAG IV SCH (04:22)
[2023-06-23] MEDS ORDERED: Pantoprazole 80 mg in NS BAG 80 MG/250 ML BAG IV SCH (04:30)
[2023-06-23 06:22] LABS: ABS Basophils 0.1 10^3/uL (0.0-0.1); ABS Eosinophils 0.1 10^3/uL (0.0-0.5); ABS Lymphocytes 1.2 10^3/uL (1.0-4.8); ABS Neutrophils 8.1 10^3/uL (1.5-7.6); ABS Nucleated RBC 0.06 10^3/ul; Eosinophil % 0.7 %; Hematocrit 26.7 % (35-45); Hemoglobin 8.9 g/dL (11.5-14.3); Lymphocyte % 11.2 %; Mean Corpuscular Hemoglobin 30.4 pg (27-33); Mean Corpuscular Hgb Conc 33.2 g/dL (31-36); Mean Corpuscular Volume 91.5 fL (80-97); Nucleated Red Blood Cells % 0.6 %/100WBC (0.0-0.8); Platelet Count 291 10^3/uL (150-450); Red Blood Count 2.92 10^6/uL (3.63-4.92); Red Cell Distribution Width 19.4 % (12-17); White Blood Count 10.4 10^3/uL (3.8-11.8)
[2023-06-23 06:39] LABS: Calcium 8.2 mg/dL (8.6-10.3); Creatinine, Serum 0.95 mg/dL (0.51-0.95); Magnesium 1.9 mg/dL (1.9-2.7); Potassium 3.8 mmol/L (3.5-5.0); eGFR CKD-EPI 61.7 (>60)
[2023-06-23] MEDS: Lidocaine PATCH 4% TOPICAL SCH (09:50)
[2023-06-23 11:01] VITALS: BP 116/65
[2023-06-23] MEDS ORDERED: Pantoprazole VIAL 40 MG VIAL IV ONE (11:36)
[2023-06-23] MEDS: Ferric Gluconate IV 125 MG in NS 0.9% 100 ml BAG 100 ML IVPB SCH (12:33)
== END 2023-06-23 17:30 | disposition home or self-care (01) | DRG 377 ==
LOC: ED 00:40 → SUATTDRO 03:03 → EDHOLD 03:03 → MED 04:37
PROVIDERS: ADMIT Internal Medicine; ATTEND Hospitalist

== ENCOUNTER 2023-09-28 15:08 | Observation (INO) ==
[2023-09-28] MEDS: Furosemide 40 mg/4 ml IV VIAL IV SLOW PU ONE ×2 (16:37→18:54)
[2023-09-28 16:38] LABS: ABS Eosinophils 1.2 10^3/uL (0.0-0.5); ABS Lymphocytes 0.8 10^3/uL (1.0-4.8); ABS Monocytes 0.8 10^3/uL (0.0-0.9); ABS Neutrophils 6.7 10^3/uL (1.5-7.6); ABS Nucleated RBC 0.01 10^3/ul; Eosinophil % 12.7 %; Hematocrit 37.4 % (35-45); Hemoglobin 12.2 g/dL (11.5-14.3); Lymphocyte % 8.5 %; Mean Corpuscular Hemoglobin 28.6 pg (27-33); Mean Corpuscular Hgb Conc 32.7 g/dL (31-36); Mean Corpuscular Volume 87.5 fL (80-97); Mean Platelet Volume 6.3 fL (7.5-11.2); Nucleated Red Blood Cells % 0.1 %/100WBC (0.0-0.8); Platelet Count 421 10^3/uL (150-450); Red Blood Count 4.28 10^6/uL (3.63-4.92); Red Cell Distribution Width 17.5 % (12-17); White Blood Count 9.6 10^3/uL (3.8-11.8)
[2023-09-28 17:26] LABS: Albumin 3.8 g/dL (3.2-5.2); Albumin/Globulin Ratio 1.4 (1-3); C Reactive Protein 82.67 mg/L (<8.01); Calcium 8.8 mg/dL (8.6-10.3); Creatinine, Serum 0.78 mg/dL (0.51-0.95); Globulin 2.8 g/dL (2-4); Potassium 4.6 mmol/L (3.5-5.0); Total Bilirubin 0.6 mg/dL (0.2-1.0); Total Protein 6.6 g/dL (6.4-8.9); eGFR CKD-EPI 78.2 (>60)
[2023-09-28 18:18] LABS: INR 1.26 (0.83-1.13)
[2023-09-28 18:28] LABS: High Sensitivity Troponin 1 Hr 27 pg/mL (<15)
[2023-09-29] MEDS ORDERED: Albuterol HFA INHALER 8 gm MDI INH PRN (00:13)
[2023-09-29 05:00] LABS: Ferritin 56.1 ng/mL (11-307)
[2023-09-29 06:19] LABS: Hematocrit 37.6 % (35-45); Hemoglobin 12.7 g/dL (11.5-14.3); Mean Corpuscular Hemoglobin 28.9 pg (27-33); Mean Corpuscular Hgb Conc 33.7 g/dL (31-36); Mean Corpuscular Volume 85.9 fL (80-97); Mean Platelet Volume 6.4 fL (7.5-11.2); Platelet Count 412 10^3/uL (150-450); Red Blood Count 4.38 10^6/uL (3.63-4.92); White Blood Count 9.4 10^3/uL (3.8-11.8)
[2023-09-29 06:57] LABS: Calcium 8.7 mg/dL (8.6-10.3); Creatinine, Serum 0.9 mg/dL (0.51-0.95); Magnesium 1.6 mg/dL (1.9-2.7); Potassium 4.1 mmol/L (3.5-5.0); eGFR CKD-EPI 65.8 (>60)
[2023-09-29 07:29] LABS: Osmolality Serum 269 mOsm/kg (275-295); Urine Osmo 313 mOsm/kg (150-1150)
[2023-09-29] MEDS: Enoxaparin 40 MG/0.4 ML SYR SUBCUT SCH (08:03)
[2023-09-29] MEDS: Magnesium Sulf 4 GM/100 ML IV 4,000 MG/100 ML BAG IVPB ONE (08:03)
[2023-09-29] MEDS: Cholecalciferol (VIT D3) 1,000 unit TAB PO SCH (09:02)
[2023-09-29] MEDS ORDERED: Sulfur Hexaflouride MICROSPHR 25 MG VIAL ONE (10:56)
[2023-09-29] MEDS ORDERED: Iron Sucrose 200 MG in NS 0.9% 100 ml BAG 100 ML IVPB SCH (12:30)
[2023-09-29] MEDS: Furosemide 40 mg/4 ml IV VIAL IV SLOW PU ONE (12:55)
[2023-09-29] MEDS: Ferric Gluconate IV 125 MG in NS 0.9% 100 ml BAG 100 ML IVPB SCH (14:25)
[2023-09-29] MEDS: Furosemide 20 mg/2 ml IV VIAL IV SLOW PU SCH (14:27)
[2023-09-30 06:54] LABS: Hematocrit 40.9 % (35-45); Hemoglobin 13.4 g/dL (11.5-14.3); Mean Corpuscular Hemoglobin 28.5 pg (27-33); Mean Corpuscular Hgb Conc 32.9 g/dL (31-36); Mean Corpuscular Volume 86.7 fL (80-97); Mean Platelet Volume 6.7 fL (7.5-11.2); Platelet Count 437 10^3/uL (150-450); Red Blood Count 4.71 10^6/uL (3.63-4.92); Red Cell Distribution Width 16.9 % (12-17); White Blood Count 9.5 10^3/uL (3.8-11.8)
[2023-09-30 07:11] LABS: Calcium 8.9 mg/dL (8.6-10.3); Creatinine, Serum 0.9 mg/dL (0.51-0.95); Magnesium 2.1 mg/dL (1.9-2.7); Potassium 4.1 mmol/L (3.5-5.0); eGFR CKD-EPI 65.8 (>60)
[2023-09-30 17:08] VITALS: BP 141/68
== END 2023-09-30 19:15 | disposition home or self-care (01) ==
LOC: EDHOLD 15:08 → ED 15:08 → SUATTDRO 22:49 → MED 09-29 11:22
PROVIDERS: ADMIT Student in an Organized Health Care Education/Training Program; ATTEND Internal Medicine